=== PATIENT | female | born 1985 | race Caucasian/White ===

== ENCOUNTER 2017-02-21 09:15 | Emergency (ER) | payer SELFPAY ==
[~2017-02-21] VITALS: Ht 170.2 cm; Wt 67.1 kg
[~2017-02-21 09:15] MED LIST: NITR-65 PO; PRM25T PO
--- OUTSIDE RECORDS SUMMARY | 2017-02-21 09:59 | XMS REPORT | Continuity of Care Document ---
Author Author [facility] Address Unknown Phone Unavailable Allergies Medications Problems Date Dx Coded Attending Type Code Diagnosis Diagnosed By 01/25/2011 TYLER HOLLAND MD V72.31 GRAVE DIGGER EXAM, ROUTINE 01/25/2011 TYLER HOLLAND MD V72.31 GRAVE DIGGER EXAM, ROUTINE 01/25/2011 V72.31 GRAVE DIGGER EXAM, ROUTINE 01/25/2011 RAFIQ TELLEZ DO V72.31 GRAVE DIGGER EXAM, ROUTINE 01/25/2011 RAFIQ TELLEZ DO V72.31 GRAVE DIGGER EXAM, ROUTINE 01/25/2011 RAFIQ TELLEZ DO V72.31 GRAVE DIGGER EXAM, ROUTINE 01/25/2011 VIANCA CONKLIN APRN V72.31 GRAVE DIGGER EXAM, ROUTINE 04/27/2011 TYLER HOLLAND MD V25.49 SURVEILLANCE OF OTHER CONTRACEPTIVE METHOD 04/27/2011 TYLER HOLLAND MD V25.49 SURVEILLANCE OF OTHER CONTRACEPTIVE METHOD 04/27/2011 V25.49 SURVEILLANCE OF OTHER CONTRACEPTIVE METHOD 04/27/2011 RAFIQ TELLEZ DO V25.49 SURVEILLANCE OF OTHER CONTRACEPTIVE METHOD 04/27/2011 RAFIQ TELLEZ DO V25.49 SURVEILLANCE OF OTHER CONTRACEPTIVE METHOD 04/27/2011 RAFIQ TELLEZ DO V25.49 SURVEILLANCE OF OTHER CONTRACEPTIVE METHOD 04/27/2011 VIANCA CONKLIN APRN V25.49 SURVEILLANCE OF OTHER CONTRACEPTIVE METHOD 05/23/2011 TYLER HOLLAND MD 511.0 PLEURISY WITHOUT EFFUSION OR CURRENT TUBERCULOSIS 05/23/2011 TYLER HOLLAND MD 786.50 CHEST PAIN 05/23/2011 TYLER HOLLAND MD 511.0 PLEURISY WITHOUT EFFUSION OR CURRENT TUBERCULOSIS 05/23/2011 TYLER HOLLAND MD 786.50 CHEST PAIN 05/23/2011 511.0 PLEURISY WITHOUT EFFUSION OR CURRENT TUBERCULOSIS 05/23/2011 786.50 CHEST PAIN 05/23/2011 RAFIQ TELLEZ DO 511.0 PLEURISY WITHOUT EFFUSION OR CURRENT TUBERCULOSIS 05/23/2011 RAFIQ TELLEZ DO 786.50 CHEST PAIN 05/23/2011 RAFIQ TELLEZ DO K 511.0 PLEURISY WITHOUT EFFUSION OR CURRENT TUBERCULOSIS 05/23/2011 RAFIQ TELLEZ DO K 786.50 CHEST PAIN 05/23/2011 GEOFF HURD, RAFIQ K 511.0 PLEURISY WITHOUT EFFUSION OR CURRENT TUBERCULOSIS 05/23/2011 RAFIQ TELLEZ DO K 786.50 CHEST PAIN 05/23/2011 VIANCA CONKLIN APRN 511.0 PLEURISY WITHOUT EFFUSION OR CURRENT TUBERCULOSIS 05/23/2011 VIANCA CONKLIN APRN 786.50 CHEST PAIN 03/13/2012 TYLER HOLLAND MD 706.1 ACNE 03/13/2012 TYLER HOLLAND MD 706.1 ACNE 03/13/2012 706.1 ACNE 03/13/2012 RAFIQ TELLEZ DO 706.1 ACNE 03/13/2012 RAFIQ TELLEZ DO K 706.1 ACNE 03/13/2012 RAFIQ TELLEZ DO 706.1 ACNE 03/13/2012 VIANCA CONKLIN APRN 706.1 ACNE 04/17/2012 TYLER HOLLAND MD V25.02 Contraceptives 04/17/2012 TYLER HOLLAND MD V76.2 Cervical Pap Smear 04/17/2012 TYLER HOLLAND MD V25.02 Contraceptives 04/17/2012 TYLER HOLLAND MD V76.2 Cervical Pap Smear 04/17/2012 V25.02 Contraceptives 04/17/2012 V76.2 Cervical Pap Smear 04/17/2012 RAFIQ TELLEZ DO V25.02 Contraceptives 04/17/2012 RAFIQ TELLEZ DO K V76.2 Cervical Pap Smear 04/17/2012 RAFIQ TELLEZ DO K V25.02 Contraceptives 04/17/2012 RAFIQ TELLEZ DO K V76.2 Cervical Pap Smear 04/17/2012 RAFIQ TELLEZ DO K V25.02 Contraceptives 04/17/2012 RAFIQ TELLEZ DO K V76.2 Cervical Pap Smear 04/17/2012 VIANCA CONKLIN APRN V25.02 Contraceptives 04/17/2012 VIANCA CONKLIN APRN V76.2 Cervical Pap Smear 12/18/2012 840.8 SPRAIN OF OTHER SPECIFIED SITES OF SHOULDER AND UPPER ARM 12/18/2012 RAFIQ TELLEZ DO 840.8 SPRAIN OF OTHER SPECIFIED SITES OF SHOULDER AND UPPER ARM 12/18/2012 RAFIQ TELLEZ DO 840.8 SPRAIN OF OTHER SPECIFIED SITES OF SHOULDER AND UPPER ARM 12/18/2012 RAFIQ TELLEZ DO 840.8 SPRAIN OF OTHER SPECIFIED SITES OF SHOULDER AND UPPER ARM 12/18/2012 VIANCA CONKLIN APRN 840.8 SPRAIN OF OTHER SPECIFIED SITES OF SHOULDER AND UPPER ARM 03/19/2013 RAFIQ TELLEZ DO V25.9 UNSPECIFIED CONTRACEPTIVE MANAGEMENT 03/19/2013 RAFIQ TELLEZ DO V25.9 UNSPECIFIED CONTRACEPTIVE MANAGEMENT 03/19/2013 RAFIQ TELLEZ DO V25.9 UNSPECIFIED CONTRACEPTIVE MANAGEMENT 03/19/2013 VIANCA CONKLIN APRN V25.9 UNSPECIFIED CONTRACEPTIVE MANAGEMENT 07/15/2013 RAFIQ TELLEZ DO 372.30 CONJUNCTIVITIS UNSPECIFIED 07/15/2013 RAFIQ TELLEZ DO 784.0 HEADACHE 07/15/2013 VIANCA CONKLIN APRN 372.30 CONJUNCTIVITIS UNSPECIFIED 07/15/2013 VIANCA CONKLIN APRN 784.0 HEADACHE Procedures Code [place] [address] PAP SMEAR 2011 Q0091 PAP SMEAR OBTAIN SMEAR 04/17/2012 96914 URINE TEST (IN-HOUSE) 04/17/2012 84847 THERAPUTIC INJ SQ/IM 03/19/2013 J1050 DEPO PROVERA 09/2012 63010 URINE TEST (IN-HOUSE) 03/19/2013 16335 TEST, URINE (IN-HOUSE) 06/18/2013 J1050 DEPO PROVERA 08/2013 70030 THERAPUTIC INJ SQ/IM 06/18/2013 47011 THERAPUTIC INJ SQ/IM 09/06/2013 J1050 DEPO PROVERA 28846 TEST, URINE (IN-HOUSE) 09/06/2013 Results Encounters ACCT No. Visit Date/Time Discharge Status Pt. Type Provider Facility Loc./Unit Complaint [id number] 09/06/2013 16:28:00 09/06/2013 23: 59:59 CLS Outpatient VIANCA CONKLIN APRN [id number] 07/15/2013 17:02:00 07/15/2013 23: 59:59 CLS Outpatient RAFIQ TELLEZ DO [id number] 06/18/2013 08:55:00 06/18/2013 23: 59:59 CLS Outpatient RAFIQ TELLEZ DO [id number] 03/19/2013 08:14:00 03/19/2013 23: 59:59 CLS Outpatient RAFIQ TELLEZ DO [id number] 04/17/2012 13:17:00 04/17/2012 23: 59:59 [place] [id number] 03/13/2012 08:48:00 03/13/2012 23: 59:59 CLS Outpatient TYLER HOLLAND MD [id number] 12/18/2012 14:25:00 Document Registration
[2017-02-21 10:17] LABS: BILIRUBIN,URINE NEGATIVE (NEGATIVE); KETONES,URINE NEGATIVE (NEGATIVE); LEUKOCYTE ESTERASE ,URINE NEGATIVE (NEGATIVE); NITRITE,URINE NEGATIVE (NEGATIVE); PH,URINE 7 (5-9); PROTEIN,URINE NEGATIVE (NEGATIVE); UROBILINOGEN,URINE NORMAL (NORMAL)
[2017-02-21 10:25] LABS: SQUAMOUS EPITHELIAL CELL,UR 0-2 /HPF
[2017-02-21] MEDS ORDERED: LIDOCAINE 2% VISCOUS 15 ML UDC PO ONE (10:45)
[2017-02-21] MEDS ORDERED: ANTACID SUSP 30 ML UDC (MYLANTA) PO ONE (10:45)
[2017-02-21] MEDS ORDERED: ONDANSETRON 4 MG (ZOFRAN) ORAL DISSOLVE TAB SL ONE (10:45)
[2017-02-21 11:53] LABS: BASOPHILS % (AUTO) 0 % (0-10); EOSINOPHILS # (AUTO) 0.1 10^3/uL (0.0-0.3); EOSINOPHILS % (AUTO) 1 % (0-10); LYMPHOCYTES # (AUTO) 1.8 X 10^3 (1.0-4.0); LYMPHOCYTES % (AUTO) 24 % (12-44); MEAN CORPUSCULAR HEMOGLOBIN 32 PG (25-34); MEAN CORPUSCULAR HGB CONC 35 G/DL (32-36); MEAN CORPUSCULAR VOLUME 91 FL (80-99); MEAN PLATELET VOLUME 9.5 FL (7.4-10.4); MONOCYTES # (AUTO) 0.7 X 10^3 (0.0-1.0); MONOCYTES % (AUTO) 10 % (0-12); NEUTROPHILS % (AUTO) 65 % (42-75); PLATELET COUNT 284 10^3/uL (130-400); RED BLOOD COUNT 4.54 10^6/uL (4.35-5.85); RED CELL DISTRIBUTION WIDTH 12.4 % (10.0-14.5); WHITE BLOOD COUNT 7.7 10^3/uL (4.3-11.0)
--- NOTE | 2017-02-21 12:12 | ED Abdominal Pain ---
General Chief Complaint: Abdominal/GI Problems Stated Complaint: VOMINTING ALL NIGHT/ABD PAIN Nursing Triage Note: PT REPORTS N/V SINCE 1999 LAST NOC. SHE IS C/O ABD PAIN NEAR HER UMBILICAL AREA. SHE REPORTS NO FOOD THIS AM, BUT STATES SHE HAS DRANK POP AND COFFEE THIS AM WITHOUT VOMITING. Sepsis Screen: No Definite Risk Source of Information: Patient Exam Limitations: No Limitations History of Present Illness Time Seen By Provider: 09:32 Initial Comments This 31-year-old young lady presents to the emergency room with complaints of central abdominal pain that has lingered for a couple of days and became more intense last night. She began vomiting after eating tacos for supper. The pain is described as posterior to the umbilicus. She rates it as less than 5 out of 10. Vomiting ceased early this morning. She has been able to drink coffee and a diet Coke without problems. However, the pain still lingers on. She is still nauseated. She has chronic diarrhea that is unchanged. Her last bowel movement was this morning. She denies any fever or urinary symptoms. Her primary care provider is Iwona Gomez at the [facility] in [place]. She is status post cholecystectomy. Allergies and Home Medications Allergies Coded Allergies: No Known Drug Allergies (Unverified Allergy, Mild, 07/29/09) Home Medications Nitrofurantoin/Nitrofuran Mac 100 Mg Capsule, 1 EACH PO BID, #20 Ref 0 for infection Prescribed by: EDWIN DAMON on 07/29/09 1828 Ondansetron 4 Mg Tab.rapdis, 4 MG SL Q4H PRN for NAUSEA/VOMITING-1ST LINE, #10 Prescribed by: MICAELA WELSH on 02/21/17 1239 Promethazine Hcl 25 Mg Tablet, 1 TAB PO Q6H, #14 Ref 0 Prescribed by: HEBER WHITTEN MD on 07/29/09 1738 Review of Systems Constitutional: no symptoms reported EENTM: No Symptoms Reported Respiratory: No Symptoms Reported Cardiovascular: No Symptoms Reported Gastrointestinal: See HPI Genitourinary: No Symptoms Reported Musculoskeletal: no symptoms reported Skin: no symptoms reported Psychiatric/Neurological: No Symptoms Reported Endocrine: No Symptoms Reported Hematologic/Lymphatic: No Symptoms Reported Past Grswsyt-Dihdhm-Xzgajr Hx Patient Social History Alcohol Use: Occasionally Uses Recreational Drug Use: No Smoking Status: Never a Smoker 2nd Hand Smoke Exposure: No Recent Foreign Travel: No Contact w/Someone Who Travel: No Recent Infectious Disease Expo: No Recent Hopitalizations: No Physical Abuse: No Sexual Abuse: No Seasonal Allergies Seasonal Allergies: No Surgeries History of Surgeries: Yes Surgeries: Gallbladder Respiratory History of Respiratory Disorde: No Cardiovascular History of Cardiac Disorders: No Neurological History of Neurological Disord: No Reproductive System : No Genitourinary History of Genitourinary Disor: No Gastrointestinal History of Gastrointestinal Di: Yes (chronic diarrhea) Gastrointestinal Disorders: Irritable Bowel Musculoskeletal History of Musculoskeletal Dis: No Endocrine History of Endocrine Disorders: No HEENT History of HEENT Disorders: No Cancer History of Cancer: No Psychosocial History of Psychiatric Problem: No Suicide Risk Score: 0 Integumentary History of Skin or Integumenta: No Physical Exam Vital Signs VS - Last 72 Hours, by Label 02/21/17 09:29 Temp 97.3 Pulse 70 Resp 16 B/P (MAP) 143/97 Pulse Ox 99 O2 Delivery Room Air Capillary Refill : Less Than 3 Seconds General Appearance: WD/WN, no apparent distress HEENT: PERRL/EOMI, normal ENT inspection Respiratory: lungs clear, normal breath sounds, no respiratory distress, no accessory muscle use Cardiovascular: regular rate, rhythm, no edema, no murmur Gastrointestinal: normal bowel sounds, soft, No guarding, No rebound, tenderness (mild tenderness around the umbilicus), No mass Extremities: normal inspection, no pedal edema Neurologic/Psychiatric: sfdc architect II-XII nml as tested, no motor/sensory deficits, alert, normal mood/affect, oriented x 3 Skin: normal color, warm/dry Progress/Results/Core Measures Results/Orders Lab Results Laboratory Tests Test 02/21/17 10:09 02/21/17 11:45 Range/Units Urine Color YELLOW Urine Clarity CLEAR Urine pH 7 5-9 Urine Specific Colome 1.010 L 1.016-1.022 Urine Protein NEGATIVE NEGATIVE Urine Glucose (UA) NEGATIVE NEGATIVE Urine Ketones NEGATIVE NEGATIVE Urine Nitrite NEGATIVE NEGATIVE Urine Bilirubin NEGATIVE NEGATIVE Urine Urobilinogen NORMAL NORMAL MG/DL Urine Leukocyte Esterase NEGATIVE NEGATIVE Urine RBC (Auto) NEGATIVE NEGATIVE Urine RBC NONE /HPF Urine WBC NONE /HPF Urine Squamous Epithelial Cells 0-2 /HPF Urine Crystals NONE /LPF Urine Bacteria NEGATIVE /HPF Urine Casts NONE /LPF Urine Mucus NEGATIVE /LPF Urine Culture Indicated NO White Blood Count 7.7 4.3-11.0 10^3/uL Red Blood Count 4.54 4.35-5.85 10^6/uL Hemoglobin 14.6 11.5-16.0 G/DL Hematocrit 42 35-52 % Mean Corpuscular Volume 91 80-99 FL Mean Corpuscular Hemoglobin 32 25-34 PG Mean Corpuscular Hemoglobin Concent 35 32-36 G/DL Red Cell Distribution Width 12.4 10.0-14.5 % Platelet Count 284 130-400 10^3/uL Mean Platelet Volume 9.5 7.4-10.4 FL Neutrophils (%) (Auto) 65 42-75 % Lymphocytes (%) (Auto) 24 12-44 % Monocytes (%) (Auto) 10 0-12 % Eosinophils (%) (Auto) 1 0-10 % Basophils (%) (Auto) 0 0-10 % Neutrophils # (Auto) 5.0 1.8-7.8 X 10^3 Lymphocytes # (Auto) 1.8 1.0-4.0 X 10^3 Monocytes # (Auto) 0.7 0.0-1.0 X 10^3 Eosinophils # (Auto) 0.1 0.0-0.3 10^3/uL Basophils # (Auto) 0.0 0.0-0.1 10^3/uL Sodium Level 142 135-145 MMOL/L Potassium Level 3.9 3.6-5.0 MMOL/L Chloride Level 103 98-107 MMOL/L Carbon Dioxide Level 28 21-32 MMOL/L Anion Gap 11 5-14 MMOL/L Blood Urea Nitrogen 12 7-18 MG/DL Creatinine 0.88 0.60-1.30 MG/DL Estimat Glomerular Filtration Rate > 60 BUN/Creatinine Ratio 14 Glucose Level 97 70-105 MG/DL Calcium Level 9.9 8.5-10.1 MG/DL Total Bilirubin 0.5 0.1-1.0 MG/DL Aspartate Amino Transf (AST/SGOT) 20 5-34 U/L Alanine Aminotransferase (ALT/SGPT) 23 0-55 U/L Alkaline Phosphatase 81 40-136 U/L Total Protein 7.8 6.4-8.2 GM/DL Albumin 4.5 3.2-4.5 GM/DL Lipase 10 8-78 U/L Serum Test, Qualitative NEGATIVE NEGATIVE My Orders Orders - MICAELA RAMSAY MD Ua Culture If Indicated (02/21/17 09:32) Ondansetron Oral Dissolve Tab (Zofran (02/21/17 10:45) Lidocaine 2% Viscous 15 Ml (Xylocaine Vi (02/21/17 10:45) Antacid Suspension (Mylanta Suspension (02/21/17 10:45) Cbc With Automated Diff (02/21/17 11:40) Comprehensive Metabolic Panel (02/21/17 11:40) Lipase (02/21/17 11:40) Saline Lock/Iv-Start (02/21/17 11:40) Hcg,Qualitative Serum (02/21/17 12:12) Ketorolac Injection (Toradol Injection) (02/21/17 12:30) Medications Given in ED Current Medications Medications Dose Ordered Sig/Kenny Route Start Time Stop Time Status Last Admin Dose Admin Al Hydrox/Mg Hydrox/Simethicone 30 ml ONCE ONCE PO 02/21/17 10:45 02/21/17 10:46 DC 02/21/17 11:10 30 ML Ketorolac Tromethamine 30 mg ONCE ONCE IVP 02/21/17 12:30 02/21/17 12:31 DC 02/21/17 12:40 30 MG Lidocaine HCl 15 ml ONCE ONCE PO 02/21/17 10:45 02/21/17 10:46 DC 02/21/17 11:10 15 ML Ondansetron HCl 8 mg ONCE ONCE SL 02/21/17 10:45 02/21/17 10:46 DC 02/21/17 11:10 8 MG Vital Signs/I&O Vital Sign - Last 12Hours 02/21/17 09:29 Temp 97.3 Pulse 70 Resp 16 B/P (MAP) 143/97 Pulse Ox 99 O2 Delivery Room Air Blood Pressure Mean: 112 Progress Note #1: Time: 11:40 Progress Note Patient was treated with Zofran and a GI cocktail. This resolved her nausea but did not improve her pain. We discussed further workup which might include lab work and imaging. She would like lab work performed at this time and imaging may be performed depending on the lab results. Progress Note #2: Time: 12:34 Progress Note Labs are unremarkable. Patient is agreeable to foregoing imaging at this time. A dose of Toradol will be administered before dismissal. Departure Impression Impression: Primary Impression: Central abdominal pain Additional Impression: Nausea and vomiting Qualified Codes: R11.2 - Nausea with vomiting, unspecified Disposition: 01 HOME, SELF-CARE Condition: Improved Departure-Patient Inst. Decision time for Depature: 12:36 Referrals: NO,LOCAL PHYSICIAN (PCP) Primary Care Physician VALERIA GOMEZ APRN (Family) Primary Care Physician Patient Instructions: Acute Abdomen (Belly Pain), Adult (DC), Nausea and Vomiting, Adult Add. Discharge Instructions: Drink plenty of clear liquids. Gradually advance your diet with small quantities of bland food as tolerated. Use of an dkza-xqq-bbanqcb antacid medication such as Pepcid (famotidine) may be helpful in reducing abdominal pain. You may also take Tylenol (acetaminophen) but avoid use of NSAID medications such as ibuprofen or naproxen. Use Zofran (ondansetron) as prescribed for nausea and vomiting. Avoid consumption of alcohol or irritating foods such as spicy foods for at least several days after your pain resolves. Then drink alcohol only in moderation. Follow-up with your primary care provider if not better in a couple of days. Return to the ER if symptoms worsen. All discharge instructions reviewed with patient and/or family. Voiced understanding. Scripts Ondansetron (Zofran Odt) 4 Mg Tab.rapdis 4 MG SL Q4H Y for NAUSEA/VOMITING-1ST LINE, #10 TAB Prov: MICAELA RAMSAY MD 02/21/17 MIACELA RAMSAY MD Feb 21, 2017 12:12
[2017-02-21 12:15] LABS: ALANINE AMINOTRANSFERASE 23 U/L (0-55); ALBUMIN 4.5 GM/DL (3.2-4.5); ANION GAP 11 MMOL/L (5-14); ASPARTATE AMINO TRANSFERASE 20 U/L (5-34); BILIRUBIN,TOTAL 0.5 MG/DL (0.1-1.0); BLOOD UREA NITROGEN 12 MG/DL (7-18); BUN/CREATININE RATIO 14; CALCIUM 9.9 MG/DL (8.5-10.1); CARBON DIOXIDE 28 MMOL/L (21-32); CHLORIDE 103 MMOL/L (98-107); CREATININE SERUM 0.88 MG/DL (0.60-1.30); GFR ESTIMATED > 60; GLUCOSE 97 MG/DL (70-105); LIPASE 10 U/L (8-78); POTASSIUM 3.9 MMOL/L (3.6-5.0); SODIUM 142 MMOL/L (135-145); TOTAL PROTEIN 7.8 GM/DL (6.4-8.2)
[2017-02-21] MEDS ORDERED: KETOROLAC 30 MG/ML VIAL IVP ONE (12:30)
[2017-02-21] MEDS ORDERED: ONDA4TAB8 SL (12:39)
[2017-02-21 12:49] VITALS: BP 123/95
== END 2017-02-21 12:49 | disposition home or self-care (01) ==
LOC: EDUNIT# 09:15 → ER 09:20
DX: R10.33 Periumbilical pain (principal); R11.2 Nausea with vomiting, unspecified; Z90.49 Acquired absence of other specified parts of digestive tract; Z87.19 Personal history of other diseases of the digestive system
CPT/HCPCS: 36415; 80053; 81000; 83690; 84703; 85025

== ENCOUNTER → 2017-06-16 | Outpatient (CLI) | payer SELFPAY ==
[~2017-06-16] MED LIST changes: +ONDA4TAB8 SL
--- NOTE | 2017-06-16 15:51 | Diagnostic Imaging Report ---
PROCEDURE: US OB SINGLE FETUS <14 WKS. TECHNIQUE: Multiple real-time grayscale images were obtained over the gravid uterus in various projections. INDICATION: with unknown dates. COMPARISON: None available. FINDINGS: There is a gestational sac appropriately positioned within the uterus at the level of the fundus, and the gestational sac has a normal morphology. An embryo is identified with a crown-rump length of 0.85 cm which gives an estimated gestational age of 6 weeks and 6 days. heart tones are identified at a rate of 125 beats per minute. No appreciable subchorionic hemorrhage. Both ovaries are identified and physiologic in appearance. Blood flow is seen in both ovaries by color Doppler imaging. No suspicious adnexal mass or free pelvic fluid. IMPRESSION: 1. Early single live intrauterine with an estimated gestational age of 6 weeks and 6 days. This gives an estimated due date of 02/03/2018. Dictated by: Dictated on workstation # [id number]
== END ==
LOC: RAD 13:24
PROVIDERS: ATTEND Family Medicine
DX: Z34.81 Encounter for supervision of other normal pregnancy, first trimester (principal); Z3A.01 Less than 8 weeks gestation of pregnancy
CPT/HCPCS: 76801

== ENCOUNTER → 2017-09-20 | Outpatient (CLI) | payer MEDICAID ==
--- NOTE | 2017-09-20 13:31 | Diagnostic Imaging Report ---
INDICATION: , second trimester. TECHNIQUE: Multiple real-time grayscale images were obtained over the gravid uterus. COMPARISON: 06/16/2017. FINDINGS: The prior OB ultrasound exam of 06/16/2017 noted a single live fetus of approximately 6 weeks 6 days gestation +/-1/2 week. On this study, the fetus is again identified. The fetus is cephalic in presentation. heart motion was noted with a rate of 161 BPM recorded. There were no abnormalities identified. However, the four-chamber heart view, the intracranial contents, and the spine were not optimally visualized due to lie. I would recommend that a short-term (4-6 week) followup exam be performed for further evaluation. The placenta is anterior and there is no previa. The amniotic fluid volume is within normal limits. The growth parameters have progressed as expected since the prior exam, although the abdominal circumference measures slightly less than the other growth parameters. The cervix was identified and measures 4.4 cm in length. IMPRESSION: 1. There is a single live fetus of approximately 20 weeks 4 days gestation +/-1 week. The EDC remains 02/03/2018. 2. There were no abnormalities identified but the spine, intracranial contents, and four-chamber heart view were not optimally visualized. Recommendations, as above. 3. The growth parameters have progressed as expected since the prior exam. The growth parameters could also be further evaluated on the followup exam. Biometrical measurements are as follows: Biparietal 4.85 cm, age 20 weeks 5 days. Head circumference 18.13 cm, age 20 weeks 4 days. Abdominal circumference 14.48 cm, age 19 weeks 6 days. Femur length 3.78 cm, age 22 weeks 1 days. Sonographic estimate age: 20 weeks 6 days. Sonographic estimated date of delivery: 02/01/18. Estimated Weight: 379 gm (+/- 55 gm). LMP percentile: 59%. heart rate: 161 beats per minute. number: 1 of 1. Dictated by: Dictated on workstation # [id number]
== END ==
LOC: RAD 10:51
PROVIDERS: ATTEND Family Medicine
DX: Z34.82 Encounter for supervision of other normal pregnancy, second trimester (principal); Z3A.20 20 weeks gestation of pregnancy
CPT/HCPCS: 76805

== ENCOUNTER → 2017-11-20 | Outpatient (CLI) | payer MEDICAID ==
--- NOTE | 2017-11-20 10:37 | Diagnostic Imaging Report ---
INDICATION: Followup heart, brain and spine as well as and amniotic fluid index. TECHNIQUE: Multiple real-time grayscale images were obtained over the gravid uterus. COMPARISON: 09/20/2017. FINDINGS: There is a single live fetus in a cephalic presentation. Placenta is anterior. heart rate was recorded at 165 beats per minute. Amniotic fluid index is 12.1 cm. survey does show the brain to be unremarkable. There is a four-chamber heart. The spine is unremarkable. Biometrical measurements are as follows: Biparietal 7.38 cm, age 29 weeks 5 days. Head circumference 27.44 cm, age 30 weeks 0 days. Abdominal circumference 26.24 cm, age 30 weeks 3 days. Femur length 5.49 cm, age 30 weeks 3 days. Sonographic estimate age: 29 weeks 6 days. Sonographic estimated date of delivery: 01/30/2018. Estimated Weight: 1463 gm (+/- 214 gm). LMP percentile: 57%. heart rate: 165 beats per minute. number: 1 of 1. IMPRESSION: Single live IUP approximately 30 weeks gestational age demonstrating normal interval growth when compared with prior ultrasound from 09/20/2017. Dictated by: Dictated on workstation # [id number]
== END ==
LOC: RAD 09:28
PROVIDERS: ATTEND Family Medicine
DX: Z34.83 Encounter for supervision of other normal pregnancy, third trimester (principal); Z3A.30 30 weeks gestation of pregnancy
CPT/HCPCS: 76816

== ENCOUNTER 2018-02-01 20:00 | Inpatient (IN) | payer MEDICAID ==
[~2018-02-01] VITALS: Ht 170.2 cm; Wt 77.6 kg
--- OUTSIDE RECORDS SUMMARY | 2018-02-01 20:09 | XMS REPORT ---
Author Author RAVIN WELDON Organization [facility] Address [address] [place] [address] Care Team Providers Care Director Biomedical Engineering Name Role Phone SHIRAZ RAVIN Unavailable PROBLEMS Type Condition ICD9-CM Code DHH27-BD Code Onset Dates Condition Status SNOMED Code Problem Bilateral carpal tunnel syndrome G56.03 Active 74872032957042939 Problem Uterine size-date discrepancy in third trimester O26.843 Active 141421715 Problem Heartburn R12 Active 99745868 Problem Encounter for supervision of other normal , third trimester Z34.83 Active 77258254 Problem Anemia affecting , antepartum O99.019 Active 287153263 Problem Other specified related conditions, third trimester O26.893 Active 57384352 ALLERGIES No Known Allergies ENCOUNTERS Encounter Location Date Diagnosis [id number] [id number] Jan, [address] [place] [id number] Jan, [facility] [address] [id number][place] [id number] Jan, Encounter for supervision of other normal , third trimester Z34.83 [facility] [address] [facility] [id number][place] [id number] Dec, [facility] [address] [id number], [place] [id number] Dec, Encounter for supervision of other normal , third trimester Z34.[address] [facility] [address] [id number], [place] [id number] Dec, Encounter for supervision of other normal , third trimester Z34.83 ; Other specified related conditions, third trimester O26.893 ; Heartburn R12 ; Encounter for screening for Streptococcus B Z36.85 and Bilateral carpal tunnel syndrome G56.03 [facility] 120 [address] [id number] Dec, Heartburn R12 ; Encounter for supervision of other normal , third trimester Z34.83 ; Other specified related conditions, third trimester O26.893 ; Uterine size-date discrepancy in third trimester O26.843 ; Anemia affecting , antepartum O99.019 and Bilateral carpal tunnel syndrome G56.03 [address] [place] [address] [id number] Nov, Encounter for supervision of other normal , third trimester Z34.83 ; Other specified related conditions, third trimester O26.893 ; Heartburn R12 ; Anemia affecting , antepartum O99.019 and Uterine size-date discrepancy in third trimester O26.[address] [place] [address] [id number] Nov, [place] [id number] [place] [address] [id number] Nov, Encounter for supervision of other normal , third trimester Z34.83 ; Anemia affecting , antepartum O99.019 ; Heartburn R12 ; Other specified related conditions, third trimester O26.893 and Encounter for immunization Z23 [facility] [address] [id number], [place] [id number] Oct, Encounter for supervision of other normal , second trimester Z34.82 [facility] [id number] [id number] Oct, Anemia affecting , antepartum O99.019 [facility] [id number] [place] [address] [id number] Oct, Encounter for supervision of other normal , second trimester Z34.82 [facility] [address] [id number], [place] [id number] September, Encounter for supervision of other normal , second trimester Z34.82 [facility] [address] [id number], [place] [id number] September, [facility] [address] [id number], [place] [id number] September, Encounter for supervision of other normal , second trimester Z34.82 ; Other specified bacterial agents as the cause of diseases classified elsewhere B96.89 and Acute vaginitis N76.0 [facility] [address] [id number], [place] [id number] Aug, [facility] [address] [id number], [place] [id number] Jul, Encounter for supervision of other normal , second trimester Z34.82 [facility] [address] [facility] [id number], [place] [id number] Jul, Encounter for supervision of other normal , first trimester Z34.81 [facility] [address] [facility] [id number], [place] [id number] Jun, [facility] [id number], [place] [id number] Jun, [facility] [id number], [place] [id number] May, Encounter for supervision of other normal , first trimester Z34.81 [facility] [id number], [place] [id number] May, test-positive Z32.01 [facility] [address]005[address], [place] [address] Aug, [facility] [address]00565100[place], [place] [address]46 Aug, [facility] [address] [facility] [id number], [place] [phone] Aug, [facility] [address] [place] [address] 2546 Aug, [facility] [address] [facility] [id number], [place] [phone] Jul, [facility] [address]00565100[place], [place] [address] Jul, [facility] [address] [id number], [place] [address]- [address] Jun, [facility] [address] [id number] [place] [id number] Jun, [facility] [address] [id number] [place] [id number] Mar, [facility] [address] [facility] [id number] [place] [address]- [address] Mar, [facility] [address] [id number] [place] [id number] Dec, [facility] [address] [id number] [place] [id number] Apr, [facility] [address] [id number] [place] [id number] Apr, [facility] [address] [place] [address] Apr, [facility] [place] [facility] [address]00565100[place], [place] [address] Apr, [facility] [place] [facility] [address] [id number], [place] [address] Apr, [facility] [address] [facility] [id number] [place] [id number] Apr, [facility] [place] [facility] [address] [id number], [place] [address] Apr, [facility] [place] [facility] [address]00565100[place], [place] [address] Mar, [facility] [place] [facility] [address] [facility] [id number] [address] Mar, [facility] [place] [facility] [address] [facility] [id number], [place] [address] Mar, [facility] [place] [facility] [address] [id number], [place] [address] Mar, [facility] [place] [facility] [address] [id number], [place] [address] Mar, [facility] [id number], [place] [id number] Mar, [facility] [id number] [place] [address]- [address] Mar, [facility] [id number] [place] [address] [id number] Feb, [facility] [id number] [place] [address]- 2546 Feb, [facility] [id number] [place] [address]- 2546 Feb, [facility] [id number] [place] [address] [phone] Feb, [facility] [id number] [place] [address] [id number] Jan, [facility] [id number] [place] [address] [phone] Oct, [facility] [id number] [place] [address] [id number] Jul, [facility] [id number] [place] [address] [phone] May, [facility] [id number] [place] [address] 2546 Apr, [facility] [address]00565100[place], [place] [address] 2546 Jan, IMMUNIZATIONS No Known Immunizations SOCIAL HISTORY Never Assessed [facility] Activity Details Follow Up 2-3 weeks Reason: Pending Test UA OB DIP (IN HOUSE) VITAL SIGNS Height 67 in 2017-12-05 Weight 166.2 lbs 2017-12-05 Temperature 97.6 degrees Fahrenheit 2017-12-05 Heart Rate 88 bpm 2017-12-05 Respiratory Rate 16 2017-12-05 BMI 26.031 kg/m2 2017-12-05 Blood pressure systolic 122 mmHg 2017-12-05 Blood pressure diastolic 68 mmHg 2017-12-05 MEDICATIONS Medication Instructions Dosage Frequency Start Date End Date Duration Status Ranitidine HCl 150 MG Orally Once a day 1 tablet at bedtime 24h Nov, 30 day(s) Active Ferrous Sulfate 325 (65 Fe) MG Orally Once a day 1 tablet 24h Oct, 30 day(s) Active Multivitamin Plus DHA 27-0.8-250 MG Orally no more than twice a day as directed May, Active RESULTS Name Result Date Reference Range Ultrasound : OB, Limited 2017-12-26 PROCEDURES Procedure Date Ordered Result Body Site URINE-NO MICRO December 05, 2017 INSTRUCTIONS MEDICATIONS ADMINISTERED No Known Medications MEDICAL (GENERAL) HISTORY Type Description Date Surgical History tonsillectomy and adenoidectomy Surgical History cholecystectomy Hospitalization History ER for vaginal discharge 08/2017
--- OUTSIDE RECORDS SUMMARY | 2018-02-01 20:10 | XMS REPORT ---
Author Author RAVIN WELDON Organization [facility] Address [address] [place] [address] Care Team Providers Care Bsa/Aml Compliance Officer Name Role Phone SHIRAZ RAVIN Unavailable PROBLEMS Type Condition ICD9-CM Code YRX92-EY Code Onset Dates Condition Status SNOMED Code Problem Bilateral carpal tunnel syndrome G56.03 Active 37577490544268263 Problem Uterine size-date discrepancy in third trimester O26.843 Active 671912303 Problem Heartburn R12 Active 77187895 Problem Encounter for supervision of other normal , third trimester Z34.83 Active 68554294 Problem Anemia affecting , antepartum O99.019 Active 997489474 Problem Other specified related conditions, third trimester O26.893 Active 44386663 ALLERGIES No Known Allergies ENCOUNTERS Encounter Location Date Diagnosis [address]005[address] [id number] Jan, [facility] [address] [place] [address] [id number] Jan, [facility] [address] [id number] [place] [id number] Jan, [facility] [place] [id number] [id number] Dec, [facility] [address] [id number] [place] [phone] Dec, Encounter for supervision of other normal , third trimester Z34.83 [facility] All MediaTER [address] [id number] [place] [id number] Dec, Encounter for supervision of other normal , third trimester Z34.83 ; Other specified related conditions, third trimester O26.893 ; Heartburn R12 ; Encounter for screening for Streptococcus B Z36.85 and Bilateral carpal tunnel syndrome G56.03 [facility] [id number], [place] [id number] Dec, Heartburn R12 ; Encounter for supervision of other normal , third trimester Z34.83 ; Other specified related conditions, third trimester O26.893 ; Uterine size-date discrepancy in third trimester O26.843 ; Anemia affecting , antepartum O99.019 and Bilateral carpal tunnel syndrome G56.03 [facility] [id number] [place] [address] [id number] Nov, Encounter for supervision of other normal , third trimester Z34.83 ; Other specified related conditions, third trimester O26.893 ; Heartburn R12 ; Anemia affecting , antepartum O99.019 and Uterine size-date discrepancy in third trimester O26.843 [facility] [id number] [place] [address] [id number] Nov, [facility] [address] [place] [address] [phone] Nov, Encounter for supervision of other normal , third trimester Z34.83 ; Anemia affecting , antepartum O99.019 ; Heartburn R12 ; Other specified related conditions, third trimester O26.893 and Encounter for immunization Z23 [facility]ITALScheduling Employee Sched[employer] Software[address] [id number] [place] [id number] Oct, Encounter for supervision of other normal , second trimester Z34.82 [facility] [address]005[address]100[place] [id number] Oct, Anemia affecting , antepartum O99.019 [facility] [address] [place] [address] [id number] Oct, Encounter for supervision of other normal , second trimester Z34.82 [facility] [address] [id number] [place] [id number] September, Encounter for supervision of other normal , second trimester Z34.82 [facility] [place] [id number] [id number] September, [facility] [address] [id number] [place] [id number] September, Encounter for supervision of other normal , second trimester Z34.82 ; Other specified bacterial agents as the cause of diseases classified elsewhere B96.89 and Acute vaginitis N76.0 [facility] [id number], [place] [id number] Aug, [facility] [id number], [place] [id number] Jul, Encounter for supervision of other normal , second trimester Z34.82 [facility] [id number], [place] [id number] Jul, Encounter for supervision of other normal , first trimester Z34.81 [facility] [id number], [place] [id number] Jun, [facility] [id number], [place] [id number] Jun, [facility] [id number] [place] [address] [id number] May, Encounter for supervision of other normal , first trimester Z34.81 [facility] [id number], [place] [id number] May, test-positive Z32.01 [facility] [id number] [place] [address] 2546 Aug, [facility] [id number] [place] [address] 53439 2546 Aug, [facility] [id number], [place] [id number] Aug, [facility] [id number] [place] [address]- [address]16 Aug, [facility] [id number] [place] [address] [id number] Jul, [facility] [id number] [place] [address]- [address]876 Jul, [facility] [id number] [place] [address]90- 6046 Jun, [facility] [address] [id number] [place] [id number] Jun, [facility] [address] [id number] [place] [id number] Mar, [facility] [place] [facility] [address] [id number] [place] [address]- 2546 Mar, [facility] [address] [id number] [place] [id number] Dec, [facility] [address] [id number] [place] [phone] Apr, [facility] [address] [id number] [place] [id number] Apr, [facility] [place] [facility] [address] [facility] [id number] [place] [address]- [address] Apr, [facility] [place] [facility] [address]00565100[place] [address]- [address] Apr, [facility] [place] [facility] [address] [facility] [id number] [place] [address]- 8347 Apr, [facility] [address] [id number] [place] [id number] Apr, [facility] [place] [facility] [address]00565100[place] [address]- 7[address] Apr, [facility] [place] [facility] [address]00565100[place] [address]- [address]23 Mar, [facility] [place] [facility] [address] [id number] [address]- 2659 Mar, [facility] [place] [facility] [address] [facility] [id number] [place] [address]- 2676 Mar, [facility] [place] [facility] [address] [facility] [id number] [place] [address]- 2597 Mar, [facility] [place] [facility] [address] [facility] [id number] [place] [address]- 0823 Mar, [facility] [id number], [place] [id number] Mar, [facility] [id number] [place] [address] 27323 2546 Mar, [facility] [id number] [place] [address] [id number] Feb, [facility] [id number] [place] [address] 26916 2546 Feb, [facility] [id number] [place] [address] 93600- 2546 Feb, [facility] [id number] [place] [address] [id number] Feb, [facility] [id number] [place] [address] [id number] Jan, [facility] [id number] [place] [address] [phone] Oct, [facility] [id number] [place] [address] [id number] Jul, [facility] [id number] [place] [address] [phone] May, [facility] [id number] [place] [address] 06643 2546 Apr, [facility] [address]00565100[place] [address] 2546 Jan, IMMUNIZATIONS No Known Immunizations SOCIAL HISTORY Never Assessed REASON FOR VISIT OB [facility] PLAN OF CARE Activity Details Follow Up 2 -3 Weeks Reason: VITAL SIGNS Height 67 in 2017-11-02 Weight 167 lbs 2017-11-02 Temperature 97.6 degrees Fahrenheit 2017-11-02 Heart Rate 82 bpm 2017-11-02 Respiratory Rate 16 2017-11-02 BMI 26.156 kg/m2 2017-11-02 Blood pressure systolic 118 mmHg 2017-11-02 Blood pressure diastolic 68 mmHg 2017-11-02 MEDICATIONS Medication Instructions Dosage Frequency Start Date End Date Duration Status Multivitamin Plus DHA 27-0.8-250 MG Orally no more than twice a day as directed May, Active RESULTS No Results PROCEDURES Procedure Date Ordered Result Body Site LAB NOT BILLED BY [facility] November 02, 2017 URINE-NO MICRO November 02, 2017 VENIPUNCT, ROUTINE* November 02, 2017 INSTRUCTIONS MEDICATIONS ADMINISTERED No Known Medications MEDICAL (GENERAL) HISTORY Type Description Date Surgical History tonsillectomy and adenoidectomy Surgical History cholecystectomy Hospitalization History ER for vaginal discharge 08/2017
--- OUTSIDE RECORDS SUMMARY | 2018-02-01 20:10 | XMS REPORT ---
Author Author RAVIN WELDON Organization [facility] Address [address] [place] [address] Care Team Providers Care Budget Specialist Name Role Phone RAVIN WELDON Unavailable PROBLEMS Type Condition ICD9-CM Code HIE36-IO Code Onset Dates Condition Status SNOMED Code Problem Encounter for supervision of other normal , second trimester Z34.82 Active 37694699 Problem Encounter for supervision of other normal , first trimester Z34.81 Active 90675856 Problem Bilateral carpal tunnel syndrome G56.03 Active 08044256575399622 Problem Uterine size-date discrepancy in third trimester O26.843 Active 102533302 Problem Heartburn R12 Active 07432826 Problem Encounter for supervision of other normal , third trimester Z34.83 Active 11302925 Problem Anemia affecting , antepartum O99.019 Active 155630617 Problem Other specified related conditions, third trimester O26.893 Active 84308781 ALLERGIES No Known Allergies ENCOUNTERS Encounter Location Date Diagnosis [place] [address] [facility] [id number] [place] [id number] Dec, [facility] [address] [facility] [id number][place] [id number] Dec, Heartburn R12 ; Encounter for supervision of other normal , third trimester Z34.83 ; Other specified related conditions, third trimester O26.893 ; Uterine size-date discrepancy in third trimester O26.843 ; Anemia affecting , antepartum O99.019 and Bilateral carpal tunnel syndrome G56.03 [facility] [address] [facility] [id number], [place] [id number] Nov, Encounter for supervision of other normal , third trimester Z34.83 ; Other specified related conditions, third trimester O26.893 ; Heartburn R12 ; Anemia affecting , antepartum O99.019 and Uterine size-date discrepancy in third trimester O26.843 [facility] [address] [id number], [place] [address] Nov, [facility] [id number] [place] [id number] Nov, Encounter for supervision of other normal , third trimester Z34.83 ; Anemia affecting , antepartum O99.019 ; Heartburn R12 ; Other specified related conditions, third trimester O26.893 and Encounter for immunization Z23 [facility] [address] [id number] [id number] Oct, Encounter for supervision of other normal , second trimester Z34.82 [facility] [id number] [place] [id number] Oct, Anemia affecting , antepartum O99.019 [facility] [id number] [place] [id number] Oct, Encounter for supervision of other normal , second trimester Z34.82 [facility] [address] [id number][place] [id number] September, Encounter for supervision of other normal , second trimester Z34.82 [facility] [id number], [place] [id number] September, [facility] [address] [id number], [place] [id number] September, Encounter for supervision of other normal , second trimester Z34.82 ; Other specified bacterial agents as the cause of diseases classified elsewhere B96.89 and Acute vaginitis N76.0 [facility] [address] [facility] [id number], [place] [phone] Aug, [facility] [address] [id number], [place] [phone] Jul, Encounter for supervision of other normal , second trimester Z34.82 [facility] [address] [id number], [place] [phone] Jul, Encounter for supervision of other normal , first trimester Z34.81 [facility] [address] [id number], [place] [phone] Jun, [facility] [address] [id number], [place] [address] Jun, [facility] [id number], [place] [id number] May, Encounter for supervision of other normal , first trimester Z34.81 [facility] [id number], [place] [id number] May, test-positive Z32.01 [facility] [id number] [place] [address] Aug, [facility] [id number] [place] [address]- [address] Aug, [facility] [id number] [place] [address] [id number] Aug, [facility] [id number] [place] [address] Aug, [facility] [id number], [place] [id number] Jul, [facility] [id number] [place] [address]- 4[address] Jul, [facility] [id number] [place] [address]- 8746 Jun, [facility] [id number], [place] [phone] Jun, [facility] [id number], [place] [id number] Mar, [facility] [address]00565100[place], [place] [address] Mar, [facility] [id number], [place] [id number] Dec, [facility] [id number], [place] [address] Apr, [facility] [id number], [place] [address] Apr, [facility] [address] [id number], [place] [address] Apr, [facility] [place] [facility] [address] [id number], [place] [address] Apr, [facility] [address] [id number] [place] [address] Apr, [facility] [address] [id number], [place] [id number] Apr, [facility] [address] [id number] [place] [address] Apr, [facility] [place] [facility] [address] [id number] [place] [address] Mar, [facility] [place] [facility] [address] [facility] [id number] [place] [address]- [address] Mar, [facility] [place] [facility] [address] [facility] [id number], [place] [address]- [address] Mar, [facility] [address] [facility] [id number] [place] [address]- [address] Mar, [facility] [place] [facility] [address] [facility] [id number], [place] [address] Mar, [facility] [address] [facility] [id number], [place] [id number] Mar, [facility] [place] [facility] [address] [id number], [place] [address] Mar, [facility] [address] [id number], [place] [id number] Feb, [facility] [place] [facility] [address] [id number], [place] [address] Feb, [facility] [place] [facility] [address] [facility] [id number], [place] [address] Feb, [facility] [address] [id number], [place] [id number] Feb, [facility] [address] [facility] [id number] [place] [phone] Jan, [facility] [address] [facility] [id number], [place] [phone] Oct, [facility] [address] [facility] [id number], [place] [id number] Jul, [facility] [address] [facility] [id number], [place] [phone] May, [facility] [id number], [place] [address] Apr, [facility] [id number], [place] [address] Jan, IMMUNIZATIONS No Known Immunizations SOCIAL HISTORY Never Assessed REASON FOR VISIT Followup [facility] PLAN OF CARE Activity Details Follow Up 4 Weeks Reason: Pending Test UA OB DIP (IN HOUSE) VITAL SIGNS Height 67 in 2017-10-02 Weight 162.9 lbs 2017-10-02 Temperature 97.2 degrees Fahrenheit 2017-10-02 Heart Rate 85 bpm 2017-10-02 Respiratory Rate 16 2017-10-02 Oximetry 99 % 2017-10-02 BMI 25.514 kg/m2 2017-10-02 Blood pressure systolic 128 mmHg 2017-10-02 Blood pressure diastolic 73 mmHg 2017-10-02 MEDICATIONS Medication Instructions Dosage Frequency Start Date End Date Duration Status Multivitamin Plus DHA 27-0.8-250 MG Orally no more than twice a day as directed May, Active RESULTS No Results PROCEDURES Procedure Date Ordered Result Body Site URINE-NO MICRO October 02, 2017 INSTRUCTIONS MEDICATIONS ADMINISTERED No Known Medications MEDICAL (GENERAL) HISTORY Type Description Date Surgical History tonsillectomy and adenoidectomy Surgical History cholecystectomy Hospitalization History ER for vaginal discharge 08/2017
--- OUTSIDE RECORDS SUMMARY | 2018-02-01 20:10 | XMS REPORT ---
Author Author RAVIN WELDON Organization [facility] Address [address] [place] [address] Care Team Providers Care Business Process Associate Name Role Phone SHIRAZ RAVIN Unavailable PROBLEMS Type Condition ICD9-CM Code QCM40-CH Code Onset Dates Condition Status SNOMED Code Problem Bilateral carpal tunnel syndrome G56.03 Active 29846252074815748 Problem Uterine size-date discrepancy in third trimester O26.843 Active 958714288 Problem Heartburn R12 Active 26748288 Problem Encounter for supervision of other normal , third trimester Z34.83 Active 55300562 Problem Anemia affecting , antepartum O99.019 Active 698808842 Problem Other specified related conditions, third trimester O26.893 Active 36458502 ALLERGIES No Information ENCOUNTERS Encounter Location Date Diagnosis [place] [id number] [id number] Jan, [address] [place] [address] [id number] Jan, [facility] [address] [facility] [address] [address] [id number], [place] [phone] Jan, Encounter for supervision of other normal , third trimester Z34.[address] [id number], [place] [id number] Dec, [facility] [address] [facility] [id number], [place] [address] Dec, Encounter for supervision of other normal , third trimester Z34.83 [facility] [address] [id number], [place] [id number] Dec, Encounter for supervision of other normal , third trimester Z34.83 ; Other specified related conditions, third trimester O26.893 ; Heartburn R12 ; Encounter for screening for Streptococcus B Z36.85 and Bilateral carpal tunnel syndrome G56.03 [facility] [address]00565100[place], [place] [address] Dec, Heartburn R12 ; Encounter for supervision of other normal , third trimester Z34.83 ; Other specified related conditions, third trimester O26.893 ; Uterine size-date discrepancy in third trimester O26.843 ; Anemia affecting , antepartum O99.019 and Bilateral carpal tunnel syndrome G56.[address] [place] [id number] Nov, Encounter for supervision of other normal , third trimester Z34.83 ; Other specified related conditions, third trimester O26.893 ; Heartburn R12 ; Anemia affecting , antepartum O99.019 and Uterine size-date discrepancy in third trimester O26.[address] [place] [address] [id number] Nov, [place] [id number] [place] [id number] Nov, Encounter for supervision of other normal , third trimester Z34.83 ; Anemia affecting , antepartum O99.019 ; Heartburn R12 ; Other specified related conditions, third trimester O26.893 and Encounter for immunization Z23 [facility] [address] [id number], [place] [id number] Oct, Encounter for supervision of other normal , second trimester Z34.82 [facility] [place] [id number] [phone] Oct, Anemia affecting , antepartum O99.019 [facility] [id number] [place] [address] [id number] Oct, Encounter for supervision of other normal , second trimester Z34.82 [facility] [address] [id number], [place] [address] September, Encounter for supervision of other normal , second trimester Z34.82 [facility] [address] [id number], [place] [id number] September, [facility] [place] [address] [id number], [place] [id number] September, Encounter for supervision of other normal , second trimester Z34.82 ; Other specified bacterial agents as the cause of diseases classified elsewhere B96.89 and Acute vaginitis N76.0 [facility] [address] [id number], [place] [id number] Aug, [facility] [id number], [place] [id number] Jul, Encounter for supervision of other normal , second trimester Z34.82 [facility] [place] [address] [facility] [id number], [place] [phone] Jul, Encounter for supervision of other normal , first trimester Z34.81 [facility] [place] [address] [facility] [id number], [place] [phone] Jun, [facility] [place] [id number], [place] [id number] Jun, [facility] [place] [id number], [place] [phone] May, Encounter for supervision of other normal , first trimester Z34.81 [facility] [place] [id number], [place] [id number] May, test-positive Z32.01 [facility] [address]00565100[place], [place] [address] Aug, [facility] [address]00565100[place], [place] [address] 2546 Aug, [facility] [address] [facility] [id number], [place] [id number] Aug, [facility] [id number] [place] [address]- [address]56 Aug, [facility] [address] [facility] [id number], [place] [id number] Jul, [facility] [address]00565100[place], [place] [address]- [address] Jul, [facility] [address] [id number], [place] [address]- 2546 Jun, [facility] [address] [id number] [place] [id number] Jun, [facility] [address] [id number] [place] [id number] Mar, [facility] [address] [facility] [id number] [place] [address]- [address]46 Mar, [facility] [address] [id number] [place] [id number] Dec, [facility] [address] [id number] [place] [id number] Apr, [facility] [address] [id number] [place] [id number] Apr, [facility] [address] [address]- [address] Apr, [facility] [place] [facility] [address]00565100[place], [place] [address]- [address] Apr, [facility] [place] [facility] [address] [id number], [place] [address]- [address] Apr, [facility] [address] [facility] [id number] [place] [id number] Apr, [facility] [place] [facility] [address]00565100[place], [place] [address]- [address] Apr, [facility] [place] [facility] [address]00565100[place], [place] [address]- [address] Mar, [facility] [place] [facility] [address] [facility] [id number], [place] [address]- 9487 Mar, [facility] [place] [facility] [address]00565100[place], [place] [address]- 9[address] Mar, [facility] [place] [facility] [address] [id number], [place] [address]- [address] Mar, [facility] [place] [facility] [address]00565100[place], [place] [address]- [address] Mar, [facility] [id number], [place] [address] Mar, [facility] [address]00565100[place], [place] [address]- [address]46 Mar, [facility] [id number], [place] [id number] Feb, [facility] [address]00565100[place], [place] [address]- [address]46 Feb, [facility] [address]00565100[place], [place] [address]- 2546 Feb, [facility] [id number] [place] [address] [id number] Feb, [facility] [id number] [place] [address] [id number] Jan, [facility] [id number] [place] [address] [id number] Oct, [facility] [id number], [place] [id number] Jul, [facility] [id number], [place] [address]50034396 May, [facility] [address]00565100[place], [place] [address]- [address] Apr, [facility] [address]00565100[place], [place] [address]- [address] Jan, IMMUNIZATIONS No Known Immunizations SOCIAL HISTORY Never Assessed REASON FOR VISIT Requests return call PLAN OF CARE VITAL SIGNS MEDICATIONS Unknown Medications RESULTS No Results PROCEDURES No Known procedures INSTRUCTIONS MEDICATIONS ADMINISTERED No Known Medications MEDICAL (GENERAL) HISTORY Type Description Date Surgical History tonsillectomy and adenoidectomy Surgical History cholecystectomy Hospitalization History ER for vaginal discharge 08/2017
--- OUTSIDE RECORDS SUMMARY | 2018-02-01 20:10 | XMS REPORT ---
Author Author RAVIN WELDON Organization [facility], [place] Address [address] [place] [address] Care Team Providers Care Supervisor Data Processing Name Role Phone BUZZMICHELLESOO RAVIN Unavailable PROBLEMS Type Condition ICD9-CM Code TGT36-DP Code Onset Dates Condition Status SNOMED Code Problem Bilateral carpal tunnel syndrome G56.03 Active 09962979903261344 Problem Uterine size-date discrepancy in third trimester O26.843 Active 607979062 Problem Heartburn R12 Active 41941945 Problem Encounter for supervision of other normal , third trimester Z34.83 Active 54352460 Problem Anemia affecting , antepartum O99.019 Active 957510449 Problem Other specified related conditions, third trimester O26.893 Active 52115146 ALLERGIES No Information ENCOUNTERS Encounter Location Date Diagnosis [facility] [id number] [id number] Dec, [facility] [employer] [facility] [id number][place] [id number] Dec, Encounter for supervision of other normal , third trimester Z34.83 ; Other specified related conditions, third trimester O26.893 ; Heartburn R12 ; Encounter for screening for Streptococcus B Z36.85 and Bilateral carpal tunnel syndrome G56.03 [facility] [address] [id number][place] [id number] Dec, Heartburn R12 ; Encounter for supervision of other normal , third trimester Z34.83 ; Other specified related conditions, third trimester O26.893 ; Uterine size-date discrepancy in third trimester O26.843 ; Anemia affecting , antepartum O99.019 and Bilateral carpal tunnel syndrome G56.03 [facility] [address] [id number][place] [id number] Nov, Encounter for supervision of other normal , third trimester Z34.83 ; Other specified related conditions, third trimester O26.893 ; Heartburn R12 ; Anemia affecting , antepartum O99.019 and Uterine size-date discrepancy in third trimester O26.843 [facility] [id number], [place] [id number] Nov, [facility] [place] [address] [place] [phone] Nov, Encounter for supervision of other normal , third trimester Z34.83 ; Anemia affecting , antepartum O99.019 ; Heartburn R12 ; Other specified related conditions, third trimester O26.893 and Encounter for immunization Z23 [facility] [address] [id number][place] [phone] Oct, Encounter for supervision of other normal , second trimester Z34.82 [facility] [address]00565100[place] [id number] Oct, Anemia affecting , antepartum O99.019 [facility] [address] [id number] [place] [id number] Oct, Encounter for supervision of other normal , second trimester Z34.82 [facility] [address] [id number], [place] [id number] September, Encounter for supervision of other normal , second trimester Z34.82 [facility] [place] [id number] [id number] September, [facility] [address] [id number], [place] [id number] September, Encounter for supervision of other normal , second trimester Z34.82 ; Other specified bacterial agents as the cause of diseases classified elsewhere B96.89 and Acute vaginitis N76.0 [facility] [place] [id number], [place] [id number] Aug, [facility] [place] [address] [id number], [place] [id number] Jul, Encounter for supervision of other normal , second trimester Z34.82 [facility] [place] [address]00565100[place] [id number] Jul, Encounter for supervision of other normal , first trimester Z34.81 [facility] [address] [id number] [place] [id number] Jun, [facility] [address] [id number], [place] [phone] Jun, [facility] [id number] [place] [id number] May, Encounter for supervision of other normal , first trimester Z34.81 [facility] [id number], [place] [id number] May, test-positive Z32.01 [facility] [place] [facility] [id number] [place] [address]- 2546 Aug, [facility] [place] [facility] [id number] [place] [address] 29499- 2546 Aug, [facility] [id number] [place] [address] [id number] Aug, [facility] [place] [facility] [id number] [place] [address] 27[address]- 7346 Aug, [facility] [id number] [place] [address] [id number] Jul, [facility] [place] [facility] [id number] [place] [address] 08338- 2546 Jul, [facility] [place] [facility] [id number] [place] [address] 20094- 2546 Jun, [facility] [id number], [place] [id number] Jun, [facility] [id number] [place] [address] [id number] Mar, [facility] [place] [facility] [id number] [place] [address] 72106- 2546 Mar, [facility] [id number], [place] [id number] Dec, [facility] [address] [id number], [place] [id number] Apr, [facility] [address] [facility] [id number], [place] [id number] Apr, [facility] [place] [facility] [address] [facility] [id number], [place] [address]- [address] Apr, [facility] [place] [facility] [address] [facility] [id number], [place] [address]- [address] Apr, [facility] [place] [facility] [address] [facility] [id number], [place] [address]- 9878 Apr, [facility] [address] [facility] [id number], [place] [id number] Apr, [facility] [place] [facility] [address] [id number], [place] [address]- [address] Apr, [facility] [place] [facility] [address]00565100[place], [place] [address]998[address]- [address] Mar, [facility] [place] [facility] [address]00565100[place], [place] [address] 98[address] Mar, [facility] [place] [facility] [address]00565100[place], [place] [address]- 6[address] Mar, [facility] [place] [facility] [address]00565100[place], [place] [address] Mar, [facility] [place] [facility] [address] [id number], [place] [address] Mar, [facility] [address] [facility] [id number], [place] [id number] Mar, [facility] [place] [facility] [address] [facility] [id number], [place] [address] Mar, [facility] [address] [facility] [id number], [place] [id number] Feb, [facility] [place] [facility] [address] [id number], [place] [address] Feb, [facility] [place] [facility] [address]00565100[place], [place] [address] Feb, [facility] [address] [id number], [place] [id number] Feb, [address]00565100[place], [place] [id number] Jan, [place] [id number] [id number] Oct, [address] [place] [address] [id number] Jul, [address]00565100[place], [place] [id number] May, [facility] [place] [id number] [place] [address]- [address]46 Apr, [facility] [place] [address]00565100[place], [place] [address]- [address] Jan, IMMUNIZATIONS No Known Immunizations SOCIAL HISTORY Never Assessed REASON FOR VISIT Rx to Pharmacy PLAN OF CARE VITAL SIGNS MEDICATIONS Medication Instructions Dosage Frequency Start Date End Date Duration Status Ferrous Sulfate 325 (65 Fe) MG Orally Once a day 1 tablet 24h Oct, 30 day(s) Active RESULTS No Results PROCEDURES No Known procedures INSTRUCTIONS MEDICATIONS ADMINISTERED No Known Medications MEDICAL (GENERAL) HISTORY Type Description Date Surgical History tonsillectomy and adenoidectomy Surgical History cholecystectomy Hospitalization History ER for vaginal discharge 08/2017
--- OUTSIDE RECORDS SUMMARY | 2018-02-01 20:10 | XMS REPORT ---
Author Author RAVIN WELDON Organization [facility] Address [address] [place] [address] Care Team Providers Care Gas Well Drilling Manager Name Role Phone SHIRAZ RAVIN Unavailable PROBLEMS Type Condition ICD9-CM Code YWG39-LE Code Onset Dates Condition Status SNOMED Code Problem Bilateral carpal tunnel syndrome G56.03 Active 02468181598435727 Problem Uterine size-date discrepancy in third trimester O26.843 Active 372586556 Problem Heartburn R12 Active 90412086 Problem Encounter for supervision of other normal , third trimester Z34.83 Active 73832403 Problem Anemia affecting , antepartum O99.019 Active 001452774 Problem Other specified related conditions, third trimester O26.893 Active 10339073 ALLERGIES No Information ENCOUNTERS Encounter Location Date Diagnosis [id number] [phone] Jan, [facility] [address] [place] [address] [phone] Jan, [facility] [address] [id number], [place] [id number] Jan, [facility] [address] [id number] [id number] Dec, [facility] [address] [id number], [place] [id number] Dec, Encounter for supervision of other normal , third trimester Z34.83 [facility] [id number] [place] [address] [id number] Dec, Encounter for supervision of other normal , third trimester Z34.83 ; Other specified related conditions, third trimester O26.893 ; Heartburn R12 ; Encounter for screening for Streptococcus B Z36.85 and Bilateral carpal tunnel syndrome G56.03 [facility] [id number] [place] [id number] Dec, Heartburn R12 ; Encounter for supervision of other normal , third trimester Z34.83 ; Other specified related conditions, third trimester O26.893 ; Uterine size-date discrepancy in third trimester O26.843 ; Anemia affecting , antepartum O99.019 and Bilateral carpal tunnel syndrome G56.03 [facility] [place] [id number] [place] [id number] Nov, Encounter for supervision of other normal , third trimester Z34.83 ; Other specified related conditions, third trimester O26.893 ; Heartburn R12 ; Anemia affecting , antepartum O99.019 and Uterine size-date discrepancy in third trimester O26.843 [facility] [place] [id number] [place] [address] [id number] Nov, [facility] [address] [place] [address] [id number] Nov, Encounter for supervision of other normal , third trimester Z34.83 ; Anemia affecting , antepartum O99.019 ; Heartburn R12 ; Other specified related conditions, third trimester O26.893 and Encounter for immunization Z23 [facility] [address] [id number], [place] [id number] Oct, Encounter for supervision of other normal , second trimester Z34.82 [facility] [address]00565100[place] [id number] Oct, Anemia affecting , antepartum O99.019 [facility] [place] [id number] [place] [address] [phone] Oct, Encounter for supervision of other normal , second trimester Z34.82 [facility] [address] [id number], [place] [id number] September, Encounter for supervision of other normal , second trimester Z34.82 [facility] [place] [id number] [id number] September, [facility] [address] [id number], [place] [id number] September, Encounter for supervision of other normal , second trimester Z34.82 ; Other specified bacterial agents as the cause of diseases classified elsewhere B96.89 and Acute vaginitis N76.0 [facility] [id number] [place] [phone] Aug, [facility] [id number] [place] [id number] Jul, Encounter for supervision of other normal , second trimester Z34.82 [facility] [id number] [place] [id number] Jul, Encounter for supervision of other normal , first trimester Z34.81 [facility] [id number] [place] [address] [id number] Jun, [facility] [place] [id number] [place] [address] [phone] Jun, [facility] [id number] [place] [address] [phone] May, Encounter for supervision of other normal , first trimester Z34.81 [facility] [place] [id number] [place] [id number] May, test-positive Z32.01 [facility] [id number] [place] [address]5557 2546 Aug, [facility] [id number] [place] [address] 15683 2546 Aug, [facility] [id number] [place] [address] [phone] Aug, [facility] [id number] [place] [address] 14941 2546 Aug, [facility] [place] [id number] [place] [address] [id number] Jul, [facility] [id number] [place] [address] 50403- 2546 Jul, [facility] [id number] [place] [address] 12359- 7186 Jun, [facility] [address] [id number] [place] [id number] Jun, [facility] [address] [id number] [place] [id number] Mar, [facility] [place] [facility] [address] [id number] [address]- 2546 Mar, [facility] [address] [id number] [place] [id number] Dec, [facility] [address] [id number] [place] [id number] Apr, [facility] [address] [id number] [place] [id number] Apr, [facility] [place] [facility] [address] [facility] [id number], [place] [address]- 8866 Apr, [facility] [place] [facility] [address]00565100[place], [place] [address]- 7198 Apr, [facility] [place] [facility] [address] [facility] [id number][place] [address]- 1786 Apr, [facility] [address] [id number] [place] [id number] Apr, [facility] [place] [facility] [address]00565100[place], [place] [address]- [address] Apr, [facility] [place] [facility] [address] [id number] [address]- 6639 Mar, [facility] [place] [facility] [address] [facility] [id number], [place] [address]- 7580 Mar, [facility] [place] [facility] [address] [facility] [id number], [place] [address]- 2985 Mar, [facility] [place] [facility] [address] [facility] [id number], [place] [address]- 4155 Mar, [facility] [place] [facility] [address] [facility] [id number], [place] [address]- 4048 Mar, [facility] [id number] [place] [id number] Mar, [facility] [address]00565100[place], [place] [address]- 2546 Mar, [facility] [id number] [place] [id number] Feb, [facility] [address]00565100[place], [place] [address]- 2546 Feb, [facility] [address] [place] [address] 54200- 2546 Feb, [facility] [id number] [place] [id number] Feb, [facility] [id number] [place] [address] [id number] Jan, [facility] [id number] [place] [address] [phone] Oct, [facility] [id number] [place] [address] [id number] Jul, [facility] [id number] [place] [id number] May, [facility] [address]00565100[place] [address]- 4[address] Apr, [facility] [address]00565100[place], [place] [address]- 1566 Jan, IMMUNIZATIONS No Known Immunizations SOCIAL HISTORY Never Assessed REASON FOR VISIT Waiting for call back PLAN OF CARE VITAL SIGNS MEDICATIONS Unknown Medications RESULTS Name Result Date Reference Range Ultrasound : OB, Limited 2017-11-21 PROCEDURES No Known procedures INSTRUCTIONS MEDICATIONS ADMINISTERED No Known Medications MEDICAL (GENERAL) HISTORY Type Description Date Surgical History tonsillectomy and adenoidectomy Surgical History cholecystectomy Hospitalization History ER for vaginal discharge 08/2017
--- OUTSIDE RECORDS SUMMARY | 2018-02-01 20:10 | XMS REPORT ---
Author Author RAVIN WELDON Organization [facility] Address [address] [place] [address] Care Team Providers Care Customer Specialist Name Role Phone SHIRAZ RAVIN Unavailable PROBLEMS Type Condition ICD9-CM Code SII49-TC Code Onset Dates Condition Status SNOMED Code Problem Bilateral carpal tunnel syndrome G56.03 Active 25860705832394049 Problem Uterine size-date discrepancy in third trimester O26.843 Active 242962343 Problem Heartburn R12 Active 50576900 Problem Encounter for supervision of other normal , third trimester Z34.83 Active 35556157 Problem Anemia affecting , antepartum O99.019 Active 735035149 Problem Other specified related conditions, third trimester O26.893 Active 97327334 ALLERGIES No Known Allergies ENCOUNTERS Encounter Location Date Diagnosis [id number] [id number] Jan, [facility] [address] [place] [address] [id number] Jan, [facility] [address] [id number], [place] [id number] Jan, [facility] [id number] [id number] Dec, [facility] [address] [id number], [place] [id number] Dec, Encounter for supervision of other normal , third trimester Z34.83 [facility] [address] [id number], [place] [id number] Dec, Encounter for supervision of other normal , third trimester Z34.83 ; Other specified related conditions, third trimester O26.893 ; Heartburn R12 ; Encounter for screening for Streptococcus B Z36.85 and Bilateral carpal tunnel syndrome G56.03 [facility] [id number] [place] [id number] Dec, Heartburn R12 ; Encounter for supervision of other normal , third trimester Z34.83 ; Other specified related conditions, third trimester O26.893 ; Uterine size-date discrepancy in third trimester O26.843 ; Anemia affecting , antepartum O99.019 and Bilateral carpal tunnel syndrome G56.03 [facility] [id number] [place] [address] [id number] Nov, Encounter for supervision of other normal , third trimester Z34.83 ; Other specified related conditions, third trimester O26.893 ; Heartburn R12 ; Anemia affecting , antepartum O99.019 and Uterine size-date discrepancy in third trimester O26.843 [facility] [id number] [place] [address] [id number] Nov, [facility] [address] [place] [address] [id number] Nov, Encounter for supervision of other normal , third trimester Z34.83 ; Anemia affecting , antepartum O99.019 ; Heartburn R12 ; Other specified related conditions, third trimester O26.893 and Encounter for immunization Z23 [facility] [id number], [place] [id number] Oct, Encounter for supervision of other normal , second trimester Z34.82 [facility] [address] [id number] Oct, Anemia affecting , antepartum O99.019 [facility] [address] [place] [address] [id number] Oct, Encounter for supervision of other normal , second trimester Z34.82 [facility] [address] [id number], [place] [id number] September, Encounter for supervision of other normal , second trimester Z34.82 [facility] [place] [address] [id number] [id number] September, [facility] [address] [id number], [place] [address] September, Encounter for supervision of other normal , second trimester Z34.82 ; Other specified bacterial agents as the cause of diseases classified elsewhere B96.89 and Acute vaginitis N76.0 [facility] [id number] [place] [id number] Aug, [facility] [id number] [place]DE [place] [id number] Jul, Encounter for supervision of other normal , second trimester Z34.82 [facility] [id number] HYDE [place] [address] Jul, Encounter for supervision of other normal , first trimester Z34.81 [facility] [id number] HYDE [place] [id number] Jun, [facility] [id number] HY[place] [id number] Jun, [facility] [id number] [place] [address] [id number] May, Encounter for supervision of other normal , first trimester Z34.81 [facility] [id number] HYDE [place] [id number] May, test-positive Z32.01 [facility] [id number] [place] [address] 60236 2546 Aug, [facility] [id number] [place] [address] 63158 2546 Aug, [facility] [id number] HYDE [place] [id number] Aug, [facility] [id number] [place] [address]24- 6666 Aug, [facility] [id number] [place] [address] [id number] Jul, [facility] [id number] [place] [address] 95029- 9906 Jul, [facility] [id number] [place] [address] 43350- 4866 Jun, [facility] [address] [id number] [place] [id number] Jun, [facility] [address] [id number] [place] [phone] Mar, [facility] [place] [facility] [address] [id number] [place] [address]- 2546 Mar, [facility] [address] [id number] [place] [phone] Dec, [facility] [address] [id number] [place] [id number] Apr, [facility] [address] [id number] [place] [id number] Apr, [facility] [place] [facility] [address] [facility] [id number] [address]- 9146 Apr, [facility] [place] [facility] [address]00565100[place], [place] [address]- 1447 Apr, [facility] [place] [facility] [address] [facility] [id number], [place] [address]- 9068 Apr, [facility] [address] [id number] [place] [id number] Apr, [facility] [place] [facility] [address]00565100[place], [place] [address]- 9997 Apr, [facility] [place] [facility] [address]00565100[place], [place] [address]- 0247 Mar, [facility] [place] [facility] [address] [id number], [place] [address]- 1821 Mar, [facility] [place] [facility] [address] [facility] [id number], [place] [address]- 2434 Mar, [facility] [place] [facility] [address] [facility] [id number], [place] [address]- 2113 Mar, [facility] [place] [facility] [address] [facility] [id number], [place] [address]- 3529 Mar, [facility] [id number] [place] [phone] Mar, [facility] [id number] [place] [address] 00832- 2546 Mar, [facility] [id number] [place] [address] [id number] Feb, [facility] [id number] [place] [address] 15227- 2546 Feb, [facility] [id number] [place] [address] 08791- 2546 Feb, [facility] [id number] [place] [address] [id number] Feb, [facility] [id number] [place] [address] [id number] Jan, [facility] [id number] [place] [address] [id number] Oct, [facility] [id number] [place] [address] [id number] Jul, [facility] [id number] [place] [address] [id number] May, [facility] [id number] [place] [address] 19960 2546 Apr, [facility] [address] [place] [address] 27637- 2546 Jan, IMMUNIZATIONS Vaccine Route Administration Date Status TDAP (BOOSTRIX) IM Intramuscular November 21, 2017 Administered SOCIAL HISTORY Never Assessed REASON FOR VISIT Followup---caleb, RN PLAN OF CARE Activity Details Follow Up 2 Weeks Reason: VITAL SIGNS Height 67 in 2017-11-21 Weight 166.6 lbs 2017-11-21 Temperature 97.9 degrees Fahrenheit 2017-11-21 Heart Rate 92 bpm 2017-11-21 Respiratory Rate 16 2017-11-21 BMI 26.093 kg/m2 2017-11-21 Blood pressure systolic 122 mmHg 2017-11-21 Blood pressure diastolic 70 mmHg 2017-11-21 MEDICATIONS Medication Instructions Dosage Frequency Start Date End Date Duration Status Multivitamin Plus DHA 27-0.8-250 MG Orally no more than twice a day as directed May, Active Ranitidine HCl 150 MG Orally Once a day 1 tablet at bedtime 24h Nov, 30 day(s) Active Ferrous Sulfate 325 (65 Fe) MG Orally Once a day 1 tablet 24h Oct, 30 day(s) Active RESULTS Name Result Date Reference Range UA OB DIP (IN HOUSE) 2017-11-21 Glucose neg Protein trace PROCEDURES Procedure Date Ordered Result Body Site URINE-NO MICRO November 21, 2017 SINGLE IMMUNIZATION ADMIN November 21, 2017 TDAP (BOOSTRIX) November 21, 2017 INSTRUCTIONS MEDICATIONS ADMINISTERED No Known Medications MEDICAL (GENERAL) HISTORY Type Description Date Surgical History tonsillectomy and adenoidectomy Surgical History cholecystectomy Hospitalization History ER for vaginal discharge 08/2017
--- OUTSIDE RECORDS SUMMARY | 2018-02-01 20:11 | XMS REPORT ---
Author Author RAVIN WELDON [facility] Address [address] [place] [address] Care Team Providers Care Class A Regional Truck Driver Name Role Phone SHIRAZ RAVIN Unavailable PROBLEMS Type Condition ICD9-CM Code YTU81-PA Code Onset Dates Condition Status SNOMED Code Problem Encounter for supervision of other normal , first trimester Z34.81 Active 37627426 Problem Uterine size-date discrepancy in third trimester O26.843 Active 702673457 Problem Anemia affecting , antepartum O99.019 Active 351841188 Problem Encounter for supervision of other normal , third trimester Z34.83 Active 11475294 Problem Encounter for supervision of other normal , second trimester Z34.82 Active 29761610 Problem Other specified related conditions, third trimester O26.893 Active 29145370 Problem Heartburn R12 Active 56024650 ALLERGIES No Information ENCOUNTERS Encounter Location Date Diagnosis [facility] [address]005[address]100[place] [id number] Dec, [facility] [id number], [place] [address] Nov, Encounter for supervision of other normal , third trimester Z34.83 ; Other specified related conditions, third trimester O26.893 ; Heartburn R12 ; Anemia affecting , antepartum O99.019 and Uterine size-date discrepancy in third trimester O26.843 [facility] [address] W [facility] [id number], [place] [id number] Nov, [address] [address] Nov, Encounter for supervision of other normal , third trimester Z34.83 ; Anemia affecting , antepartum O99.019 ; Heartburn R12 ; Other specified related conditions, third trimester O26.893 and Encounter for immunization Z23 [facility] [address] [facility] [facility] [address] [id number] [place] [id number] Oct, Encounter for supervision of other normal , second trimester Z34.82 [facility] [address] [id number] [place] [id number] Oct, Anemia affecting , antepartum O99.019 [facility] [address] [id number] [place] [address] Oct, Encounter for supervision of other normal , second trimester Z34.[address] [facility] [address] [id number] [id number] September, Encounter for supervision of other normal , second trimester Z34.82 [facility] [address] [id number] [place] [address] September, [facility] [address] [facility] [address] [id number][place] [id number] September, Encounter for supervision of other normal , second trimester Z34.82 ; Other specified bacterial agents as the cause of diseases classified elsewhere B96.89 and Acute vaginitis N76.0 [facility] [address] [id number] [place] [id number] Aug, [facility] [address] [id number] [place] [id number] Jul, Encounter for supervision of other normal , second trimester Z34.82 [facility] [address] [id number] [place] [address] Jul, Encounter for supervision of other normal , first trimester Z34.81 [facility] [address] [id number] [place] [id number] Jun, [facility] [address] [id number] [place] [address] Jun, [facility] [address] [id number] [place] [id number] May, Encounter for supervision of other normal , first trimester Z34.81 [facility] [address] [id number] [place] [address]99[address] May, test-positive Z32.01 [facility] [address] [id number] [address]- 0261 Aug, [facility] [address]00565100[place] [address]- 8745 Aug, [facility] [place] [id number], [place] [address] Aug, [facility] [address] [place] [address] 93868- 5864 Aug, [facility] [address] [id number], [place] [id number] Jul, [facility] [address] [place] [address] 14922- 1756 Jul, [facility] [address]65100[place] [address]- 4064 Jun, [facility] [place] [id number] [place] [address] [id number] Jun, [facility] [place] [id number] [place] [address] [id number] Mar, [facility] [address] [address] 2546 Mar, [facility] [place] [id number], [place] [id number] Dec, [facility] [place] [address] [id number], [place] [id number] Apr, [facility] [address] [id number], [place] [id number] Apr, [facility] [place] [facility] [address]00565100[place] [address]- 4851 Apr, [facility] [place] [facility] [address]00565100[place] [address]- 6991 Apr, [facility] [place] [facility] [address] [id number] [address]- 0303 Apr, [facility] [id number], [place] [id number] Apr, [facility] [place] [facility] [address] [facility] [id number] [place] [address]- 6965 Apr, [facility] [place] [facility] [address] [facility] [id number] [place] [address]- 4756 Mar, [facility] [place] [facility] [address] [facility] [id number] [place] [address]- 9297 Mar, [facility] [place] [facility] [address] [facility] [id number] [place] [address]- 7629 Mar, [facility] [place] [facility] [address] [facility] [id number] [place] [address]- 8533 Mar, [facility] [place] [facility] [address] [facility] [id number] [place] [address]- 1211 Mar, [facility] [id number], [place] 334765689 Mar, [facility] [place] [facility] [address] [facility] [id number] [place] [address]- 0312 Mar, [facility] [address] [facility] [id number], [place] [id number] Feb, [facility] [place] [facility] [address] [facility] [id number] [place] [address]- 0386 Feb, [facility] [place] [facility] [address] [facility] [id number] [place] [address]- 2546 Feb, [facility] [address] [id number], [place] [id number] Feb, [facility] [address] [id number], [place] [id number] Jan, [facility] [address] [id number], [place] [id number] Oct, [facility] [address] [id number], [place] [id number] Jul, [facility] [address] [id number], [place] 526944080 May, [facility] [place] [facility] [address] [facility] [id number] [place] [address]- 4666 14 Apr, 2011 [facility] [address] [facility] [id number] [place] [address]- 8166 13 Jan, 2011 IMMUNIZATIONS No Known Immunizations SOCIAL HISTORY Never Assessed REASON FOR VISIT Courtesy visit- Would like FHT checked. Hasn't felt baby move alot today. Robert PARNELL PLAN OF CARE VITAL SIGNS MEDICATIONS Unknown Medications RESULTS No Results PROCEDURES No Known procedures INSTRUCTIONS MEDICATIONS ADMINISTERED No Known Medications MEDICAL (GENERAL) HISTORY Type Description Date Surgical History tonsillectomy and adenoidectomy Surgical History cholecystectomy Hospitalization History ER for vaginal discharge 08/2017
--- OUTSIDE RECORDS SUMMARY | 2018-02-01 20:11 | XMS REPORT ---
Author Author RAVIN WELDON Organization [facility] Address [address] [place] [address] Care Team Providers Care Internal Communications Manager Name Role Phone BUZZMICHELLESOO RAVIN Unavailable PROBLEMS Type Condition ICD9-CM Code WNU02-AS Code Onset Dates Condition Status SNOMED Code Problem Anemia affecting , antepartum O99.019 Active 212625780 Problem Encounter for supervision of other normal , second trimester Z34.82 Active 41830592 Problem Encounter for supervision of other normal , first trimester Z34.81 Active 72610493 ALLERGIES No Information ENCOUNTERS Encounter Location Date Diagnosis [address] [place] [address] [id number] Nov, [facility] [address] [id number] [id number] Oct, Encounter for supervision of other normal , second trimester Z34.82 [address] [place] [address] [phone] Oct, Anemia affecting , antepartum O99.019 [id number] [place] [address] [id number] Oct, Encounter for supervision of other normal , second trimester Z34.82 [facility] [address] [id number], [place] [id number] September, Encounter for supervision of other normal , second trimester Z34.[id number] [place] [address] [id number] September, [facility] [address] [id number], [place] [id number] September, Encounter for supervision of other normal , second trimester Z34.82 ; Other specified bacterial agents as the cause of diseases classified elsewhere B96.89 and Acute vaginitis N76.0 [facility] [id number], [place] [id number] Aug, [facility] [id number] [place] [address] [id number] Jul, Encounter for supervision of other normal , second trimester Z34.82 [facility] [id number], [place] [address]77472278 Jul, Encounter for supervision of other normal , first trimester Z34.81 [facility] [id number], [place] [id number] Jun, [facility] [id number] [place] [address] [id number] Jun, [facility] [id number] [place] [address] [id number] May, Encounter for supervision of other normal , first trimester Z34.81 [facility] [id number], [place] [id number] May, test-positive Z32.01 [facility] [address] [place] [address] 34240- 8556 Aug, [facility] [id number] [place] [address] 23532 2546 Aug, [facility] [id number], [place] 890842662 Aug, [facility] [address] [place] [address] 46488 2546 Aug, [facility] [id number], [place] 987332582 Jul, [facility] [id number] [place] [address] 48789 2546 Jul, [facility] [id number] [place] [address] 39247- 2546 Jun, [facility] [id number], [place] [id number] Jun, [facility] [address] [id number] [place] [id number] Mar, [facility] [place] [facility] [address] [id number], [place] [address]- 2546 Mar, [facility] [address] [id number] [place] [id number] Dec, [facility] [address] [id number] [place] [id number] Apr, [facility] [address] [id number] [place] [id number] Apr, [facility] [place] [facility] [address] [id number] [place] [address]- 7256 Apr, [facility] [place] [facility] [address] [facility] [id number] [place] [address]- 9516 Apr, [facility] [place] [facility] [address] [facility] [id number], [place] [address]- 6676 Apr, [facility] [address] [facility] [id number], [place] [id number] Apr, [facility] [place] [facility] [address] [id number] [place] [address]- 6177 Apr, [facility] [place] [facility] [address] [id number], [place] 206[place]- 3638 Mar, [facility] [place] [facility] [address] [id number], [place] [address]- 3287 Mar, [facility] [place] [facility] [address] [facility] [id number], [place] [address]- 9766 Mar, [facility] [place] [facility] [address] [facility] [id number], [place] [address]- 3550 Mar, [facility] [place] [facility] [address] [facility] [id number], [place] [address]- 7306 Mar, [facility] [address] [id number], [place] [id number] Mar, [facility] [place] [facility] [address] [facility] [id number], [place] [address]- 7986 Mar, [facility] [id number], [place] [id number] Feb, [facility] [id number] [place] [address] 13220- 2546 Feb, [facility] [id number] [place] [address] 50269- 2546 Feb, [facility] [id number] [place] [address] [id number] Feb, [facility] [id number] [place] [address] [id number] Jan, [facility] [id number] [place] [address] [id number] Oct, [facility] [id number] [place] [address] [id number] Jul, [facility] [id number] [place] [address] [phone] May, [facility] [id number] [place] [phone] Apr, [facility] [id number] [place] [phone] Jan, IMMUNIZATIONS No Known Immunizations SOCIAL HISTORY Never Assessed REASON FOR VISIT Triage PLAN OF CARE VITAL SIGNS MEDICATIONS Unknown Medications RESULTS No Results PROCEDURES No Known procedures INSTRUCTIONS MEDICATIONS ADMINISTERED No Known Medications MEDICAL (GENERAL) HISTORY Type Description Date Surgical History tonsillectomy and adenoidectomy Surgical History cholecystectomy Hospitalization History ER for vaginal discharge 08/2017
--- OUTSIDE RECORDS SUMMARY | 2018-02-01 20:11 | XMS REPORT ---
Author Author RAVIN WELDON [facility] Address [address] [place] [address] Care Team Providers Care Cat Scanner Operator Name Role Phone SHIRAZ RAVIN Unavailable PROBLEMS Type Condition ICD9-CM Code [id number] Code Onset Dates Condition Status SNOMED Code Problem Anemia affecting , antepartum O99.019 Active 461395625 Problem Other specified related conditions, third trimester O26.893 Active 00913483 Problem Encounter for supervision of other normal , second trimester Z34.82 Active 56819318 Problem Encounter for supervision of other normal , first trimester Z34.81 Active 53568308 Problem Heartburn R12 Active 26514336 Problem Encounter for supervision of other normal , third trimester Z34.83 Active 01118415 ALLERGIES No Information ENCOUNTERS Encounter Location Date Diagnosis [facility] [id number] [place] [id number] Nov, [facility] [address] [id number] [place] [address] Nov, Encounter for supervision of other normal , third trimester Z34.83 ; Anemia affecting , antepartum O99.019 ; Heartburn R12 ; Other specified related conditions, third trimester O26.893 and Encounter for immunization Z23 [facility] [address] [id number][place] [id number] Oct, Encounter for supervision of other normal , second trimester Z34.82 [facility] [address] [id number] [place]ILL[place] [id number] Oct, Anemia affecting , antepartum O99.019 [facility] [address] [id number] [place] [address] Oct, Encounter for supervision of other normal , second trimester Z34.82 [facility] [address] [id number][place] [id number] September, Encounter for supervision of other normal , second trimester Z34.82 [facility] [address] [facility] [id number] [place] [phone] September, [facility] [address] [facility] [address] [id number], [place] [address] September, Encounter for supervision of other normal , second trimester Z34.82 ; Other specified bacterial agents as the cause of diseases classified elsewhere B96.89 and Acute vaginitis N76.0 [facility] [address] [id number] VILLAGE[place] [phone] Aug, [facility] [address] [id number] [place] [id number] Jul, Encounter for supervision of other normal , second trimester Z34.82 [facility] [id number] [place] [address] Jul, Encounter for supervision of other normal , first trimester Z34.81 [facility] [address] [id number] [place] [address] Jun, [facility] [address] [id number] [place] [phone] Jun, [facility] [address] [id number] [place] [id number] May, Encounter for supervision of other normal , first trimester Z34.81 [facility] [id number] [place] [phone] May, test-positive Z32.01 [facility] [address]00565100[place], [place] [address] Aug, [facility] [id number] [place] [address] Aug, [facility] [id number] [place] [address] Aug, [facility] [id number] [place] [address]- [address]046 Aug, [facility] [address] [id number] [place] [id number] Jul, [facility] [place] [facility] [address] [id number] [place] [address] Jul, [facility] [place] [facility] [address] [facility] [id number] [place] [address]- [address] Jun, [facility] [address] [id number] [place] [id number] Jun, [facility] [address] [id number] [place] [id number] Mar, [facility] [place] [facility] [address] [id number] [place] [address]- [address] Mar, [facility] [address] [id number] [place] [id number] Dec, [facility] [address] [id number] [place] [id number] Apr, [facility] [address] [id number] [place] [phone] Apr, [facility] [place] [facility] [address] [facility] [id number] [place] [address]- 67[address] Apr, [facility] [place] [facility] [address] [id number] [address] Apr, [facility] [place] [facility] [address] [id number], [place] [address]- 1787 Apr, [facility] [address] [facility] [id number] [place] [id number] Apr, [facility] [place] [facility] [address] [facility] [id number] [address]- [address] Apr, [facility] [place] [facility] [address] [facility] [id number] [place] [address]- 0268 Mar, [facility] [place] [facility] [address] [facility] [id number] [place] [address]- 4[address] Mar, [facility] [place] [facility] [address] [facility] [id number] [place] [address]- 7[address] Mar, [facility] [id number], [place] [address] 2546 Mar, [facility] [address]00565100[place], [place] [address] Mar, [facility] [id number] [place] [address] [id number] Mar, [facility] [id number] [place] [address]- 2546 Mar, [facility] [id number] [place] [id number] Feb, [facility] [id number] [place] [address]- 2546 Feb, [facility] [id number] [place] [address]- 2546 Feb, [facility] [id number] [place] [address] [id number] Feb, [facility] [id number] [place] [address] [id number] Jan, [facility] [id number] [place] [address] [id number] Oct, [facility] [id number] [place] [address] [id number] Jul, [facility] [id number] [place] [address] [id number] May, [facility] [address]00565100[place] [address] Apr, [facility] [address]00565100[place], [place] [address] Jan, IMMUNIZATIONS No Known Immunizations SOCIAL HISTORY Never Assessed REASON FOR VISIT Blood pressure check Joshua HARDWICK PLAN OF CARE VITAL SIGNS Height 67 in 2017-07-07 Blood pressure systolic 122 mmHg 2017-07-07 Blood pressure diastolic 68 mmHg 2017-07-07 MEDICATIONS Unknown Medications RESULTS No Results PROCEDURES No Known procedures INSTRUCTIONS MEDICATIONS ADMINISTERED No Known Medications MEDICAL (GENERAL) HISTORY Type Description Date Surgical History tonsillectomy and adenoidectomy Surgical History cholecystectomy Hospitalization History ER for vaginal discharge 08/2017
--- OUTSIDE RECORDS SUMMARY | 2018-02-01 20:11 | XMS REPORT ---
Author Author RAVIN WELDON [facility] Address [address] [place] [address] Care Team Providers Care Straightener And Aligner Name Role Phone SHIRAZ RAVIN Unavailable PROBLEMS Type Condition ICD9-CM Code MKR90-NS Code Onset Dates Condition Status SNOMED Code Problem Encounter for supervision of other normal , first trimester Z34.81 Active 91444805 Problem Uterine size-date discrepancy in third trimester O26.843 Active 616303825 Problem Anemia affecting , antepartum O99.019 Active 543183070 Problem Encounter for supervision of other normal , third trimester Z34.83 Active 39307696 Problem Encounter for supervision of other normal , second trimester Z34.82 Active 72183856 Problem Other specified related conditions, third trimester O26.893 Active 27300177 Problem Heartburn R12 Active 89390880 ALLERGIES No Known Allergies ENCOUNTERS Encounter Location Date Diagnosis [facility] [address] [id number], [place] [id number] Dec, [facility] [id number], [place] [address] Nov, Encounter for supervision of other normal , third trimester Z34.83 ; Other specified related conditions, third trimester O26.893 ; Heartburn R12 ; Anemia affecting , antepartum O99.019 and Uterine size-date discrepancy in third trimester O26.843 [facility] [address] [facility] [id number][place] [address] Nov, [facility] [address]00565100[place], [place] [address] Nov, Encounter for supervision of other normal , third trimester Z34.83 ; Anemia affecting , antepartum O99.019 ; Heartburn R12 ; Other specified related conditions, third trimester O26.893 and Encounter for immunization Z23 [facility] [address] [id number] [place] [address] Oct, Encounter for supervision of other normal , second trimester Z34.82 [facility] [address] [id number] [place] [id number] Oct, Anemia affecting , antepartum O99.019 [facility] [address] [id number] [place] [id number] Oct, Encounter for supervision of other normal , second trimester Z34.82 [facility] [address] [id number] ARMY [facility] [id number] September, Encounter for supervision of other normal , second trimester Z34.82 [facility] [address] [id number] [place] [phone] September, [facility] [address] [id number] ARMY [facility] [id number] September, Encounter for supervision of other normal , second trimester Z34.82 ; Other specified bacterial agents as the cause of diseases classified elsewhere B96.89 and Acute vaginitis N76.0 [facility] [address] [id number] [place] [phone] Aug, [facility] [address] [id number] [place] [phone] Jul, Encounter for supervision of other normal , second trimester Z34.82 [facility] [address] [id number] [place] [id number] Jul, Encounter for supervision of other normal , first trimester Z34.81 [facility] [address] [id number] [place] [phone] Jun, [facility] [address] [id number] [place] [phone] Jun, [facility] [address] [id number] [place] [phone] May, Encounter for supervision of other normal , first trimester Z34.81 [facility] [address] [id number] [place] [phone] 26 Rehan, 2018 test-positive Z32.01 [facility] [address] [id number] [address] Aug, [facility] [address]00565100[place], [place] [address] Aug, [facility] [id number], [place] [phone] Aug, [facility] [address] [place] [address]- 6790 Aug, [facility] [address] [facility] [id number], [place] [phone] Jul, [facility] [address] [place] [address]- 7326 Jul, [facility] [address]00565100[place], [place] [address] Jun, [facility] [id number] [place] [address] [id number] Jun, [facility] [place] [address] [id number], [place] [address] Mar, [facility] [address]00565100[place], [place] [address] 9774 Mar, [facility] [id number], [place] [id number] Dec, [facility] [place] [address] [id number], [place] [phone] Apr, [facility] [id number], [place] [id number] Apr, [facility] [place] [facility] [address]00565100[place], [place] [address] Apr, [facility] [place] [facility] [address]00565100[place], [place] [address]- 6168 Apr, [facility] [place] [facility] [address]00565100[place], [place] [address]- [address] Apr, [facility] [id number], [place] [id number] Apr, [facility] [place] [facility] [address] [facility] [id number] [address]- 44[address] Apr, [facility] [place] [facility] [address] [facility] [id number][place] [address]- 4098 Mar, [facility] [place] [facility] [address] [facility] [id number] [address]- 6542 Mar, [facility] [place] [facility] [address] [facility] [id number] [address]- 59[address] Mar, [facility] [place] [facility] [address] [facility] [id number] [address]- 9172 Mar, [facility] [place] [facility] [address] [facility] [id number][place] [address] Mar, [facility] [id number], [place] [id number] Mar, [facility] [place] [facility] [address] [facility] [id number][place] [address]- 4678 Mar, [facility] [address] [id number], [place] [id number] Feb, [facility] [place] [facility] [address] [facility] [id number], [place] [address]- 0946 Feb, [facility] [place] [facility] [address] [facility] [id number] [address]- 2546 Feb, [facility] [address] [id number], [place] [phone] Feb, [facility] [address] [id number], [place] [address]64001254 Jan, [facility] [address] [id number] [place] [id number] Oct, [facility] [address] [id number], [place] [id number] Jul, [facility] [address] [id number], [place] [id number] May, [facility] [place] [facility] [address] [facility] [id number] [place] [address]- [address] 14 Apr, 2011 [facility] [address] [facility] [id number] [place] [address]- [address] 13 Jan, 2011 IMMUNIZATIONS No Known Immunizations SOCIAL HISTORY Never Assessed REASON FOR VISIT ob follow up---MULU ellis PLAN OF CARE Activity Details Follow Up 4 Weeks Reason: Pending Test PAP REFLEX TO HPV IF ASCUS VITAL SIGNS Height 67 in 2017-08-10 Weight 160.4 lbs 2017-08-10 Temperature 98.3 degrees Fahrenheit 2017-08-10 Heart Rate 97 bpm 2017-08-10 Respiratory Rate 16 2017-08-10 BMI 25.122 kg/m2 2017-08-10 Blood pressure systolic 120 mmHg 2017-08-10 Blood pressure diastolic 72 mmHg 2017-08-10 MEDICATIONS Medication Instructions Dosage Frequency Start Date End Date Duration Status Multivitamin Plus DHA 27-0.8-250 MG Orally no more than twice a day as directed May, Active RESULTS No Results PROCEDURES Procedure Date Ordered Result Body Site SPECIMEN HANDLING August 10, 2017 LAB NOT BILLED BY [facility] August 10, 2017 INSTRUCTIONS MEDICATIONS ADMINISTERED No Known Medications MEDICAL (GENERAL) HISTORY Type Description Date Surgical History tonsillectomy and adenoidectomy Surgical History cholecystectomy Hospitalization History ER for vaginal discharge 08/2017
--- OUTSIDE RECORDS SUMMARY | 2018-02-01 20:11 | XMS REPORT ---
Author Author EAN ZHANG [facility] Address [address] [place] [address] Care Team Providers Care Defense Travel Administrator Name Role Phone EAN ZHANG Unavailable PROBLEMS Type Condition ICD9-CM Code EXV61-FS Code Onset Dates Condition Status SNOMED Code Problem Anemia affecting , antepartum O99.019 Active 214781910 Problem Encounter for supervision of other normal , second trimester Z34.82 Active 03009292 Problem Encounter for supervision of other normal , first trimester Z34.81 Active 93164224 ALLERGIES No Information ENCOUNTERS Encounter Location Date Diagnosis [address] [place] [address] [id number] Nov, [place] [id number] [place] [address] [id number] Oct, Anemia affecting , antepartum O99.019 [id number] [place] [id number] Oct, Encounter for supervision of other normal , second trimester Z34.[address] [facility] [address] [facility] [id number] 1978[address] September, Encounter for supervision of other normal , second trimester Z34.82 [id number] [place] [phone] September, [facility] [address] [facility] [id number][place] [phone] September, Encounter for supervision of other normal , second trimester Z34.82 ; Other specified bacterial agents as the cause of diseases classified elsewhere B96.89 and Acute vaginitis N76.0 [facility] [address]00565100[place] [id number] Aug, [id number] [place] [address] [id number] Jul, Encounter for supervision of other normal , second trimester Z34.82 [facility] [id number] [place] [address] Jul, Encounter for supervision of other normal , first trimester Z34.81 [facility] [address] [id number] [place] [id number] Jun, [facility] [id number] [place] [phone] Jun, [facility] [id number] [place] 1580[address] May, Encounter for supervision of other normal , first trimester Z34.81 [facility] [id number] [place] [address] [phone] May, test-positive Z32.01 [facility] [id number] [place] [address]- 2546 Aug, [facility] [id number] [place] [address]207- 2546 Aug, [facility] [id number] [place] [id number] Aug, [facility] [id number] [place] [address]85- 2546 Aug, [facility] [id number] [place] [id number] Jul, [facility] [id number] [place] [address] 23648- 2546 Jul, [facility] [place] [facility] [id number] [place] [address] 97095- 2546 Jun, [facility] [id number] [place] [id number] Jun, [facility] [id number] [place] [id number] Mar, [facility] [id number] [place] [address]- 2546 Mar, [facility] [address] [id number] [place] 589697417 Dec, [facility] [address] [id number] [place] [id number] Apr, [facility] [address] [id number] [place] [id number] Apr, [facility] [address] [facility] [id number] [address]- 8226 Apr, [facility] [place] [address] [facility] [id number] [address]- 9474 Apr, [facility] [address] [facility] [id number] [place] [address]- 0960 Apr, [facility] [address] [facility] [id number] [place] [id number] Apr, [facility] [place] [address]00565100[place] [address]- 7255 Apr, [facility] [address] [id number] 1566[place]- 0397 Mar, [facility] [place] [facility] [address]00565100[place] [address]- 2933 Mar, [facility] [place] [facility] [address] [id number] [address]- 9075 Mar, [facility] [address]00565100[place] [address]- 1184 Mar, [facility] [place] [facility] [address] [facility] [id number] [place] [address]- 1197 Mar, [facility] [address] [facility] [id number] [place] [id number] Mar, [facility] [address] [facility] [id number] [place] [address]- 4066 Mar, [facility] [address] [facility] [id number] [place] [id number] Feb, [facility] [address] [facility] [id number] [place] [address]- 2546 Feb, [facility] [address] [id number] [address]- 2546 Feb, [facility] [address] [id number] [place] [id number] Feb, [facility] [address] [id number] [place] 7[address]8579[address] Jan, [facility] [id number] [place] [address] [id number] Oct, [facility] [address]00565100[place] [id number] Jul, [address]00565100[place] [phone] May, [facility] [address]00565100[place] [address]- 2546 Apr, [facility] [address]00565100[place] [address]- 2546 Jan, IMMUNIZATIONS No Known Immunizations SOCIAL HISTORY Never Assessed REASON FOR VISIT test (walk-in) [facility] PLAN OF CARE VITAL SIGNS MEDICATIONS Unknown Medications RESULTS Name Result Date Reference Range TEST, URINE (IN HOUSE) 2017-06-09 RESULTS POSITIVE Lot # [id number] Control POSITIVE Exp date 08/12/18 PROCEDURES Procedure Date Ordered Result Body Site URINE TEST Jun 09, 2017 INSTRUCTIONS MEDICATIONS ADMINISTERED No Known Medications MEDICAL (GENERAL) HISTORY Type Description Date Surgical History tonsillectomy and adenoidectomy Surgical History cholecystectomy Hospitalization History ER for vaginal discharge 08/2017
[2018-02-01] MEDS ORDERED: AMPICILLIN FOR IV USE 2,000 MG in NS (IVPB) 50 ML IV SCH (20:12)
[2018-02-01] MEDS ORDERED: LACTATED RINGERS 1,000 ML IV SCH (20:12)
--- OUTSIDE RECORDS SUMMARY | 2018-02-01 20:12 | XMS REPORT | Continuity of Care Document ---
Author Author [facility] Address Unknown Phone Unavailable Allergies Active Description Code Type Severity Reaction Onset Reported/Identified Relationship to Patient Clinical Status Yes No Known Drug Allergies [id number] Drug Allergy Mild N/A 07/29/2009 Medications There is no data. 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, ROUTINE 04/27/2011 TYLER HOLLAND MD V25.49 [...] CURRENT TUBERCULOSIS 05/23/2011 786.50 CHEST PAIN 05/23/2011 TELLEZ DO, RAFIQ K 511.0 PLEURISY WITHOUT EFFUSION OR CURRENT TUBERCULOSIS 05/23/2011 TELLEZ DO, RAFIQ K 786.50 CHEST PAIN 05/23/2011 TELLEZ DO, RAFIQ K 511.0 PLEURISY WITHOUT EFFUSION OR CURRENT TUBERCULOSIS 05/23/2011 TELLEZ DO, RAFIQ K 786.50 CHEST PAIN 05/23/2011 TELLEZ DO, RAFIQ K 511.0 PLEURISY WITHOUT EFFUSION OR CURRENT TUBERCULOSIS 05/23/2011 TELLEZ DO, RAFIQ K 786.50 CHEST PAIN 05/23/2011 VIANCA CONKLIN APRN 511.0 PLEURISY WITHOUT EFFUSION OR CURRENT TUBERCULOSIS 05/23/2011 VIANCA CONKLIN APRN 786.50 CHEST PAIN 03/13/2012 SKYLER HAMPTON, TYLER 706.1 ACNE 03/13/2012 TYLER HOLLAND MD 706.1 ACNE 03/13/2012 706.1 ACNE 03/13/2012 TELLEZ RAFIQ HURD 706.1 ACNE 03/13/2012 TELLEZ DO, RAFIQ K 706.1 ACNE 03/13/2012 TELLEZ DO, RAFIQ K 706.1 ACNE 03/13/2012 VIANCA CONKLIN APRN 706.1 ACNE 04/17/2012 SKYLER HAMPTON, TYLER V25.02 Contraceptives 04/17/2012 TYLER HOLLAND MD V76.2 Cervical Pap Smear 04/17/2012 TYLER HOLLAND MD V25.02 Contraceptives 04/17/2012 TYLER HOLLAND MD V76.2 Cervical Pap Smear 04/17/2012 V25.02 Contraceptives 04/17/2012 V76.2 Cervical Pap Smear 04/17/2012 RAFIQ TELLEZ DO K V25.02 Contraceptives 04/17/2012 TELLEZ , RAFIQ K V76.2 Cervical Pap Smear 04/17/2012 TELLEZ , RAFIQ K V25.02 Contraceptives 04/17/2012 TELLEZ , RAFIQ K V76.2 Cervical Pap Smear 04/17/2012 SIENNA TELLEZ DOA K V25.02 Contraceptives 04/17/2012 TELLEZ , RAFIQ K V76.2 Cervical Pap Smear 04/17/2012 VIANCA CONKLIN APRN V25.02 Contraceptives 04/17/2012 VIANCA CONKLIN APRN V76.2 Cervical Pap Smear 12/18/2012 840.8 SPRAIN OF OTHER SPECIFIED SITES OF SHOULDER AND UPPER ARM 12/18/2012 TELLEZ DO, RAFIQ K 840.8 SPRAIN OF OTHER SPECIFIED SITES OF SHOULDER AND UPPER ARM 12/18/2012 TELLEZ DO, RAFIQ K 840.8 SPRAIN OF OTHER SPECIFIED SITES OF SHOULDER AND UPPER ARM 12/18/2012 TELLEZ DO, RAFIQ K 840.8 SPRAIN OF OTHER SPECIFIED SITES OF SHOULDER AND UPPER ARM 12/18/2012 CONKLINVIANCA JOHNSON APRN R 840.8 SPRAIN OF OTHER SPECIFIED SITES OF SHOULDER AND UPPER ARM 03/19/2013 TELLEZ DO RAFIQ K V25.9 UNSPECIFIED CONTRACEPTIVE MANAGEMENT 03/19/2013 TELLEZ DO, RAFIQ K V25.9 UNSPECIFIED CONTRACEPTIVE MANAGEMENT 03/19/2013 TELLEZ DO, RAFIQ K V25.9 UNSPECIFIED CONTRACEPTIVE MANAGEMENT 03/19/2013 VIANCA CONKLIN APRN V25.9 UNSPECIFIED CONTRACEPTIVE MANAGEMENT 07/15/2013 TELLEZ SIENNA HURDA K 372.30 CONJUNCTIVITIS UNSPECIFIED 07/15/2013 RAFIQ TELLEZ DO K 784.0 HEADACHE 07/15/2013 VIANCA CONKLIN APRN R 372.30 CONJUNCTIVITIS UNSPECIFIED 07/15/2013 CONKLINVIANCA JOHNSON APRN 784.0 HEADACHE 02/21/2017 MICAELA RAMSAY MD Ot R10.33 PERIUMBILICAL PAIN 02/21/2017 MICAELA RAMSAY MD Ot R11.2 NAUSEA WITH VOMITING, UNSPECIFIED 02/21/2017 MICAELA RAMSAY MD Ot Z87.19 PERSONAL HISTORY OF OTHER DISEASES OF 02/21/2017 MICAELA RAMSAY MD Ot Z90.49 ACQUIRED ABSENCE OF OTHER SPECIFIED PART 02/27/2017 MICAELA RAMSAY MD Ot R10.33 PERIUMBILICAL PAIN 02/27/2017 MICAELA RAMSAY MD Ot R11.2 NAUSEA WITH VOMITING, UNSPECIFIED 02/27/2017 MICAELA RAMSAY MD Ot Z87.19 PERSONAL HISTORY OF OTHER DISEASES OF 02/27/2017 MICAELA RAMSAY MD Ot Z90.49 ACQUIRED ABSENCE OF OTHER SPECIFIED PART 06/19/2017 RAVIN WELDON DO Ot Z34.81 ENCOUNTER FOR SUPRVSN OF NORMAL PREGNANC 06/19/2017 BARNIDGE DO, RAVIN E Ot Z3A.01 LESS THAN 8 WEEKS GESTATION OF 07/28/2017 BARNIDGE DORAVIN E Ot Z34.81 ENCOUNTER FOR SUPRVSN OF NORMAL PREGNANC 07/28/2017 BARNIDGE DO, RAVIN E Ot Z3A.01 LESS THAN 8 WEEKS GESTATION OF 09/05/2017 BARNIDGE DOIESHARAVIN E Ot Z34.81 ENCOUNTER FOR SUPRVSN OF NORMAL PREGNANC 09/05/2017 BARNIDGE DO, RAVIN E Ot Z3A.01 LESS THAN 8 WEEKS GESTATION OF 09/05/2017 MICAELA RAMSAY MD T Ot O99.89 OT DISEASES AND CONDITIONS COMPL PREG/C 09/05/2017 MICAELA RAMSAY MD Ot R10.2 PELVIC AND PERINEAL PAIN 09/05/2017 MICAELA RAMSAY MD Ot Z3A.18 18 WEEKS GESTATION OF 09/05/2017 MICAELA RAMSAY MD Ot Z87.19 PERSONAL HISTORY OF OTHER DISEASES OF 09/05/2017 MICAELA RAMSAY MD T Ot Z90.89 ACQUIRED ABSENCE OF OTHER ORGANS 09/11/2017 MICAELA RAMSAY MD Ot O99.89 OT DISEASES AND CONDITIONS COMPL PREG/C 09/11/2017 MICAELA RAMSAY MD Ot R10.2 PELVIC AND PERINEAL PAIN 09/11/2017 MICAELA RAMSAY MD Ot Z3A.18 18 WEEKS GESTATION OF 09/11/2017 MICAELA RAMSAY MD T Ot Z87.19 PERSONAL HISTORY OF OTHER DISEASES OF 09/11/2017 MICAELA RAMSAY MD Ot Z90.89 ACQUIRED ABSENCE OF OTHER ORGANS 09/19/2017 BARNIDGE DORAVIN Ot Z34.91 ENCNTR FOR SUPRVSN OF NORMAL PREG, UNSP, 09/19/2017 BARNIDGE DO, RAVIN E Ot Z3A.01 LESS THAN 8 WEEKS GESTATION OF 09/19/2017 BARNIDGE DORAVIN E Ot Z34.91 ENCNTR FOR SUPRVSN OF NORMAL PREG, UNSP, 09/19/2017 BARNIDGE DO, RAVIN E Ot Z3A.01 LESS THAN 8 WEEKS GESTATION OF 09/20/2017 BARNIDGE DO, RAVIN E Ot Z34.91 ENCNTR FOR SUPRVSN OF NORMAL PREG, UNSP, 09/20/2017 BARNIDGE DO, RAVIN E Ot Z3A.01 LESS THAN 8 WEEKS GESTATION OF 09/21/2017 BARNIDGE DO, RAVIN E Ot Z34.82 ENCOUNTER FOR SUPRVSN OF NORMAL PREGNANC 09/21/2017 BARNIDGE DO, RAVIN E Ot Z3A.20 20 WEEKS GESTATION OF 09/29/2017 BARNIDGE DO, RAVIN E Ot Z34.91 ENCNTR FOR SUPRVSN OF NORMAL PREG, UNSP, 09/29/2017 BARNIDGE DO, RAVIN E Ot Z3A.01 LESS THAN 8 WEEKS GESTATION OF 10/06/2017 BARNIDGE DO, RAVIN E Ot Z34.82 ENCOUNTER FOR SUPRVSN OF NORMAL PREGNANC 10/06/2017 BARNIDGE DO, RAVIN E Ot Z3A.20 20 WEEKS GESTATION OF 11/21/2017 BARNIDGE DO, RAVIN E Ot Z34.83 ENCOUNTER FOR SUPRVSN OF NORMAL PREGNANC 11/21/2017 BARNIDGE DO, RAVIN E Ot Z3A.30 30 WEEKS GESTATION OF 12/08/2017 BARNIDGE DO, RAVIN E Ot Z34.83 ENCOUNTER FOR SUPRVSN OF NORMAL PREGNANC 12/08/2017 BARNIDGE DO, RAVIN E Ot Z3A.30 30 WEEKS GESTATION OF Procedures Code Description [place] [address] PAP SMEAR 04/17/2012 Q0091 PAP SMEAR OBTAIN SMEAR 04/17/2012 58333 URINE TEST (IN- HOUSE) 04/17/2012 11411 THERAPUTIC INJ SQ/IM 03/19/2013 J1050 DEPO PROVERA 03/19/2013 71715 URINE TEST (IN- HOUSE) 03/19/2013 86621 TEST, URINE (IN- HOUSE) 06/18/2013 J1050 DEPO PROVERA 06/18/2013 10418 THERAPUTIC INJ SQ/IM 06/18/2013 31609 THERAPUTIC INJ SQ/IM 09/06/2013 J1050 DEPO PROVERA 09/06/2013 85664 TEST, URINE (IN- HOUSE) 09/06/2013 Results Test Result Range Complete urinalysis with reflex to culture - 02/21/17 10:09 Urine color determination YELLOW NRG Urine clarity determination CLEAR NRG Urine pH measurement by test strip 7 5-9 Specific gravity of urine by test strip 1.010 1.016- 1.022 Urine protein assay by test strip, semi-quantitative NEGATIVE NEGATIVE Urine glucose detection by automated test strip NEGATIVE NEGATIVE Erythrocytes detection in urine sediment by light microscopy NEGATIVE NEGATIVE Urine ketones detection by automated test strip NEGATIVE NEGATIVE Urine nitrite detection by test strip NEGATIVE NEGATIVE Urine total bilirubin detection by test strip NEGATIVE NEGATIVE Urine urobilinogen measurement by automated test strip (mass/volume) NORMAL NORMAL Urine leukocyte esterase detection by dipstick NEGATIVE NEGATIVE Automated urine sediment erythrocyte count by microscopy (number/high power field) NONE NRG Automated urine sediment leukocyte count by microscopy (number/high power field ) NONE NRG Bacteria detection in urine sediment by light microscopy NEGATIVE NRG Squamous epithelial cells detection in urine sediment by light microscopy 0-2 NRG Crystals detection in urine sediment by light microscopy NONE NRG Casts detection in urine sediment by light microscopy NONE NRG Mucus detection in urine sediment by light microscopy NEGATIVE NRG Complete urinalysis with reflex to culture NO NRG Complete blood count (CBC) with automated white blood cell (WBC) differential - 02/21/17 11:45 Blood leukocytes automated count (number/volume) 7.7 10*3/uL 4.3-11.0 Blood erythrocytes automated count (number/volume) 4.54 10*6/uL 4.35-5.85 Venous blood hemoglobin measurement (mass/volume) 14.6 g/dL 11.5-16.0 Blood hematocrit (volume fraction) 42 % 35-52 Automated erythrocyte mean corpuscular volume 91 [foz_us] 80-99 Automated erythrocyte mean corpuscular hemoglobin (mass per erythrocyte) 32 pg 25-34 Automated erythrocyte mean corpuscular hemoglobin concentration measurement ( mass/volume) 35 g/dL 32-36 Automated erythrocyte distribution width ratio 12.4 % 10.0-14.5 Automated blood platelet count (count/volume) 284 10*3/uL 130-400 Automated blood platelet mean volume measurement 9.5 [foz_us] 7.4-10.4 Automated blood neutrophils/100 leukocytes 65 % 42-75 Automated blood lymphocytes/100 leukocytes 24 % 12-44 Blood monocytes/100 leukocytes 10 % 0-12 Automated blood eosinophils/100 leukocytes 1 % 0-10 Automated blood basophils/100 leukocytes 0 % 0-10 Blood neutrophils automated count (number/volume) 5.0 10*3 1.8-7.8 Blood lymphocytes automated count (number/volume) 1.8 10*3 1.0-4.0 Blood monocytes automated count (number/volume) 0.7 10*3 0.0-1.0 Automated eosinophil count 0.1 10*3/uL 0.0-0.3 Automated blood basophil count (count/volume) 0.0 10*3/uL 0.0-0.1 Comprehensive metabolic panel - 02/21/17 11:45 Serum or plasma sodium measurement (moles/volume) 142 mmol/L 135-145 Serum or plasma potassium measurement (moles/volume) 3.9 mmol/L 3.6-5.0 Serum or plasma chloride measurement (moles/volume) 103 mmol/L 98-107 Carbon dioxide 28 mmol/L 21-32 Serum or plasma anion gap determination (moles/volume) 11 mmol/L 5-14 Serum or plasma urea nitrogen measurement (mass/volume) 12 mg/dL 7-18 Serum or plasma creatinine measurement (mass/volume) 0.88 mg/dL 0.60-1.30 Serum or plasma urea nitrogen/creatinine mass ratio 14 NRG Serum or plasma creatinine measurement with calculation of estimated glomerular filtration rate > NRG Serum or plasma glucose measurement (mass/volume) 97 mg/dL 70-105 Serum or plasma calcium measurement (mass/volume) 9.9 mg/dL 8.5-10.1 Serum or plasma total bilirubin measurement (mass/volume) 0.5 mg/dL 0.1-1.0 Serum or plasma alkaline phosphatase measurement (enzymatic activity/volume) 81 U/L 40-136 Serum or plasma aspartate aminotransferase measurement (enzymatic activity/ volume) 20 U/L 5-34 Serum or plasma alanine aminotransferase measurement (enzymatic activity/volume ) 23 U/L 0-55 Serum or plasma protein measurement (mass/volume) 7.8 g/dL 6.4-8.2 Serum or plasma albumin measurement (mass/volume) 4.5 g/dL 3.2-4.5 Lipase - 02/21/17 11:45 Lipase 10 U/L 8-78 Serum or plasma choriogonadotropin ( test) detection - 02/21/17 11:45 Serum or plasma choriogonadotropin ( test) detection NEGATIVE NEGATIVE CULTURE, URINE - 06/13/17 16:27 CULTURE, URINE, ROUTINE SEE NOTE NRG QNATAL - 07/13/17 09:58 NUMBER OF FETUSES? 1 NRG ADVANCED MATERNAL AGE? NO NRG ABNORMAL HUNTER? NO NRG ABNORMAL US? NO NRG PERSONAL/FAM HISTORY? NO NRG INTERPRETATION SEE NOTE NRG TRISOMY 21 (T21) Negative NRG TRISOMY 18 (T18) Negative NRG TRISOMY 13 (T13) Negative NRG Y CHROMOSOME Detected NRG Y CHR. INTERPRETATION SEE NOTE NRG SEX CHROMOSOME No aneuploidy NRG SEX CHROMOSOME INTERP SEE NOTE NRG MICRODELETION Not detected NRG MICRODELETION INTERP SEE NOTE NRG GESTATIONAL AGE(IN WEEKS) 10 NRG GESTATIONAL AGE (IN DAYS) 5 NRG FRACTION 7.74% NRG LABORATORY COMMENTS SEE NOTE NRG LIMITATIONS SEE NOTE NRG SPECIFICATIONS SEE NOTE NRG METHODOLOGY SEE NOTE NRG CULTURE, GENITAL - 08/10/17 11:13 CULTURE, GENITAL SEE NOTE NRG SUREPATH PAP RFX HPV mRNA E6/E7 - 08/10/17 11:13 CLINICAL INFORMATION: NRG LMP: 04/10/17 NRG PREV. PAP: WNL NRG PREV. BX: NONE NRG SOURCE: [employer] NRG STATEMENT OF ADEQUACY: NRG INTERPRETATION/RESULT: NRG HEAD OF TALENT MANAGEMENT: NRG COMMENT NRG Complete urinalysis with reflex to culture - 09/05/17 12:04 Urine color determination YELLOW NRG Urine clarity determination CLEAR NRG Urine pH measurement by test strip 6.5 5-9 Specific gravity of urine by test strip 1.005 1.016- 1.022 Urine protein assay by test strip, semi-quantitative NEGATIVE NEGATIVE Urine glucose detection by automated test strip NEGATIVE NEGATIVE Erythrocytes detection in urine sediment by light microscopy NEGATIVE NEGATIVE Urine ketones detection by automated test strip NEGATIVE NEGATIVE Urine nitrite detection by test strip NEGATIVE NEGATIVE Urine total bilirubin detection by test strip NEGATIVE NEGATIVE Urine urobilinogen measurement by automated test strip (mass/volume) NORMAL NORMAL Urine leukocyte esterase detection by dipstick NEGATIVE NEGATIVE Automated urine sediment erythrocyte count by microscopy (number/high power field) NONE NRG Automated urine sediment leukocyte count by microscopy (number/high power field ) NONE NRG Bacteria detection in urine sediment by light microscopy NEGATIVE NRG Squamous epithelial cells detection in urine sediment by light microscopy 0-2 NRG Crystals detection in urine sediment by light microscopy NONE NRG Casts detection in urine sediment by light microscopy NONE NRG Mucus detection in urine sediment by light microscopy NEGATIVE NRG Complete urinalysis with reflex to culture NO NRG Chlamydia DNA amp probe, urine - 09/05/17 12:04 Chlamydia DNA amp probe, urine Not Detected Not Detected Complete blood count (CBC) with automated white blood cell (WBC) differential - 09/05/17 13:25 Blood leukocytes automated count (number/volume) 8.4 10*3/uL 4.3-11.0 Blood erythrocytes automated count (number/volume) 3.63 10*6/uL 4.35-5.85 Venous blood hemoglobin measurement (mass/volume) 11.7 g/dL 11.5-16.0 Blood hematocrit (volume fraction) 32 % 35-52 Automated erythrocyte mean corpuscular volume 89 [foz_us] 80-99 Automated erythrocyte mean corpuscular hemoglobin (mass per erythrocyte) 32 pg 25-34 Automated erythrocyte mean corpuscular hemoglobin concentration measurement ( mass/volume) 36 g/dL 32-36 Automated erythrocyte distribution width ratio 13.0 % 10.0-14.5 Automated blood platelet count (count/volume) 216 10*3/uL 130-400 Automated blood platelet mean volume measurement 10.0 [foz_us] 7.4-10.4 Automated blood neutrophils/100 leukocytes 73 % 42-75 Automated blood lymphocytes/100 leukocytes 19 % 12-44 Blood monocytes/100 leukocytes 8 % 0-12 Automated blood eosinophils/100 leukocytes 1 % 0-10 Automated blood basophils/100 leukocytes 0 % 0-10 Blood neutrophils automated count (number/volume) 6.1 10*3 1.8-7.8 Blood lymphocytes automated count (number/volume) 1.6 10*3 1.0-4.0 Blood monocytes automated count (number/volume) 0.6 10*3 0.0-1.0 Automated eosinophil count 0.1 10*3/uL 0.0-0.3 Automated blood basophil count (count/volume) 0.0 10*3/uL 0.0-0.1 Whole blood basic metabolic panel - 09/05/17 13:25 Serum or plasma sodium measurement (moles/volume) 136 mmol/L 135-145 Serum or plasma potassium measurement (moles/volume) 3.6 mmol/L 3.6-5.0 Serum or plasma chloride measurement (moles/volume) 106 mmol/L 98-107 Carbon dioxide 25 mmol/L 21-32 Serum or plasma anion gap determination (moles/volume) 5 mmol/L 5-14 Serum or plasma urea nitrogen measurement (mass/volume) 8 mg/dL 7-18 Serum or plasma creatinine measurement (mass/volume) 0.61 mg/dL 0.60-1.30 Serum or plasma urea nitrogen/creatinine mass ratio 13 NRG Serum or plasma creatinine measurement with calculation of estimated glomerular filtration rate > NRG Serum or plasma glucose measurement (mass/volume) 76 mg/dL 70-105 Serum or plasma calcium measurement (mass/volume) 9.2 mg/dL 8.5-10.1 Bacteria identification in genital specimen by aerobe culture - 09/05/17 14:45 FREE TEXT EXTERNAL PLUS NORMAL JOHANA NRG QUANTITY OF GROWTH Scant Growth NRG Bacteria identification in genital specimen by aerobe culture [id number] NRG Microscopic examination by JEAN CARLOS preparation - 09/05/17 14:45 Microscopic examination by JEAN CARLOS preparation TNP NRG Microscopic examination by wet preparation - 09/05/17 14:45 WET PREP RESULTS NO CLUE CELLS OBSERVED NRG Neisseria gonorrhoeae DNA detection by probe and signal amplification method - 09/05/17 14:45 Gonorrhea amp DNA-urine Not Detected Not Detected GLUCOSE KASEY 1 HOUR - 11/02/17 10:05 GLUCOSE, POSTPRANDIAL/ 1 HOUR 66 mg/dL See Note: CBC - 11/02/17 10:05 WHITE BLOOD CELL COUNT 8.5 Thousand/uL 3.8-10.8 RED BLOOD CELL COUNT 3.63 Million/uL 3.80-5.10 HEMOGLOBIN 11.5 g/dL 11.7-15.5 HEMATOCRIT 34.0 % 35.0-45.0 MCV 93.7 fL 80.0-100.0 MCH 31.7 pg 27.0-33.0 MCHC 33.8 g/dL 32.0-36.0 RDW 12.4 % 11.0-15.0 PLATELET COUNT 196 Thousand/uL 140-400 MPV 12.1 fL 7.5-12.5 ABSOLUTE NEUTROPHILS 6239 cells/uL 9847-3608 ABSOLUTE LYMPHOCYTES 1471 cells/uL 850-3900 ABSOLUTE MONOCYTES 663 cells/uL 200-950 ABSOLUTE EOSINOPHILS 111 cells/uL 15-500 ABSOLUTE BASOPHILS 17 cells/uL 0-200 NEUTROPHILS 73.4 % NRG LYMPHOCYTES 17.3 % NRG MONOCYTES 7.8 % NRG EOSINOPHILS 1.3 % NRG BASOPHILS 0.2 % NRG CULTURE, GROUP B STREP (VAGINAL) - 01/10/18 11:21 STREPTOCOCCUS, GROUP B CULTURE SEE NOTE NRG Encounters ACCT No. Visit Date/Time Discharge Status Pt. Type Provider Facility Loc./Unit Complaint [id number] 09/06/2013 16:28:00 09/06/2013 23:59:59 CLS Outpatient VIANCA CONKLIN APRN [id number] 07/15/2013 17:02:00 07/15/2013 23:59:59 CLS Outpatient RAFIQ TELLEZ DO [id number] 06/18/2013 08:55:00 06/18/2013 23:59:59 CLS Outpatient RAFIQ TELLEZ DO [id number] 03/19/2013 08:14:00 03/19/2013 23:59:59 CLS Outpatient RAFIQ TELLEZ DO [id number] 04/17/2012 13:17:00 04/17/2012 23:59:59 [place] [id number] 03/13/2012 08:48:00 03/13/2012 23:59:59 CLS Outpatient TYLRE HOLLAND MD [id number] 12/18/2012 14:25:00 Document Registration [id number] 11/20/2017 09:28:00 11/20/2017 23:59:59 CLS Outpatient RAVIN WELDON DO [facility] RAD SUPERVISION OF THE OTHER NORMAL [id number] 09/20/2017 10:51:00 09/20/2017 23:59:59 CLS Outpatient RAVIN WELDON DO [facility] RAD Z34.82 SECOND TRIMESTER [id number] 09/05/2017 11:43:00 09/05/2017 16:41:00 DIS Emergency DEVENDRA HAMPTON, MICAELA Phillip [facility] ER 18 1/2 WEEKS PG, CRAMPING [id number] 06/16/2017 13:24:00 06/16/2017 23:59:59 CLS Outpatient RAVIN WELDON DO [facility] RAD SUPERVISION OF [id number] 02/21/2017 09:20:00 02/21/2017 12:49:00 DIS Emergency DEVENDRA HAMPTON, MICAELA Phillip [facility] ER VOMINTING ALL NIGHT/ ABD PAIN [id number] 01/18/2018 13:00:00 01/18/2018 23:59:59 [id number] 01/10/2018 11:40:00 Document Registration [id number] 11/02/2017 08:40:00 Document Registration [id number] 08/10/2017 11:13:00 Document Registration [id number] 08/10/2017 09:20:00 Document Registration [id number] 07/13/2017 08:40:00 Document Registration [id number] 06/13/2017 14:00:00 Document Registration
[2018-02-01] MEDS ORDERED: CATHETER FLUSH 10 ML SYR IV PRN (20:15)
[2018-02-01] MEDS ORDERED: TERBUTALINE INJ 1 MG/ML (BRETHINE) AMP SC PRN (20:15)
[2018-02-01] MEDS ORDERED: MINERAL OIL CONCENTRATE 99.9% 15 ML UDC TOP PRN (20:15)
[2018-02-01] MEDS ORDERED: ZOLPIDEM 5 MG (AMBIEN) TAB PO PRN (20:15)
[2018-02-01] MEDS ORDERED: BUTORPHANOL INJ 2 MG/ML (STADOL) VIAL IV PRN (20:15)
[2018-02-01] MEDS ORDERED: MISOPROSTOL 100 MCG (CYTOTEC) TAB ONE (20:38)
[2018-02-01] MEDS: D5 LR IV SOLUTION 1,000 ML IV SCH (20:49)
[2018-02-01 20:57] LABS: BASOPHILS % (AUTO) 0 % (0-10); EOSINOPHILS # (AUTO) 0.1 10^3/uL (0.0-0.3); EOSINOPHILS % (AUTO) 1 % (0-10); HEMATOCRIT 29 % (35-52); HEMOGLOBIN 10.7 G/DL (11.5-16.0); LYMPHOCYTES # (AUTO) 2.3 X 10^3 (1.0-4.0); LYMPHOCYTES % (AUTO) 21 % (12-44); MEAN CORPUSCULAR HEMOGLOBIN 32 PG (25-34); MEAN CORPUSCULAR HGB CONC 37 G/DL (32-36); MEAN CORPUSCULAR VOLUME 88 FL (80-99); MEAN PLATELET VOLUME 11.6 FL (7.4-10.4); MONOCYTES # (AUTO) 0.9 X 10^3 (0.0-1.0); MONOCYTES % (AUTO) 8 % (0-12); NEUTROPHILS # (AUTO) 7.7 X 10^3 (1.8-7.8); NEUTROPHILS % (AUTO) 70 % (42-75); PLATELET COUNT 191 10^3/uL (130-400); RED BLOOD COUNT 3.32 10^6/uL (4.35-5.85); WHITE BLOOD COUNT 10.9 10^3/uL (4.3-11.0)
[2018-02-01 21:00] VITALS: BP 133/82
[2018-02-01] MEDS ORDERED: PREN-142 PO (21:05)
[2018-02-01] MEDS: MISOPROSTOL 100 MCG (CYTOTEC) TAB PV SCH (21:14)
[2018-02-01 22:30] VITALS: BP 124/81
--- NOTE | 2018-02-01 22:35 | History & Physical-OB ---
OB - Chief Complaint & HPI Date/Time Date of Admission: Date of Admission: Feb 01, 2018 at 20:00 Date seen by a Provider: Feb 02, 2018 Time Seen by a Provider: 04:30 Chief Complaint/History OB-Reason for Admission/Chief: Induction of Labor (elective induction of labor at 39 wks gestation) Hx : 2 Hx Para: 1 Hx Last Menstrual Period: 04/10/2017 Expected Date of Delivery: Feb 03, 2018 Gestational Age in Weeks: 39 Gestational Age in Days: 6 Indication for induction: maternal discomfort Admission Nurse Assessment Rev: Yes History of Labs O Positive, antibody screen negative TSH WNL CBC WNL - Hgb 13.6/Hct 40.4 CMP WNL UDS Negative Trich Negative GC/Chlamydia Negative HIV Negative Rubella Immune QNatal - male fetus, negative for aneuploidy Hep B Negative Hep C Negative RPR Nonreactive Varicella Immune One hour GTT - 66 CBC WNL - Hgb 11.5/Hct 34.0, Platelets 196 GBS POSITIVE Other Dating established via US at 6w6d --> 02/03/2018 Allergies and Home Medications Allergies Coded Allergies: No Known Drug Allergies (Unverified , 07/29/09) Home Medications Vit No.124/Iron/FA 1 Each Tablet, 1 EACH PO DAILY, (Reported) Patient Home Medication List Home Medication List Reviewed: Yes OB - History Hx of Present Care: Yes Ultrasounds: Normal mid trimester US Obstetrical Complications: None Medical Complications: None Information Induced Hypertension: No Maternal Gestational Diabetes: No Hemorrhage: No Obstetrical History Hx : 2 Hx Para: 1 Hx # Term Pregnancies: 1 Hx # Pregnancies: 0 Number of Living Children: 1 Hx Termination: No Hx Total # of Abortions (Spona: 0 Hx Multiple Gestation: No Hx Ectopic : No Hx Stillbirth: No Hx Complication: No Hx Induced Hypertens: No Hx Maternal Gestational Diabet: No Hx Hemorrhage: No Delivery History Hx Dystocia: No Hx Forceps Assisted Delivery: No Hx Vacuum Extraction Assisted: No Hx Placenta Abnormality: No Hx Distress: No Hx Large For Gestational Age I: No Hx Small for Gestational Age I: No Hx Section: No Hx Vaginal Delivery Post C-Sec: No Hx Blood Disorders: No Adverse Rxn to Tranfusion: No Patient Past Medical History x1 Carpal Tunnel Syndrome - Bilateral Social History/Family History HIV/AIDS: No Recent Infectious Disease Expo: No Sexually Transmitted Disease: No Alcohol Use: Denies Use Recreational Drug Use: No Smoking Cessation: Never smoker 2nd Hand Smoke Exposure: No Immunizations Tetanus Booster (TDap): Less than 5yrs Rubella: immune RPR/VDRL: Negative GBS Status: Positive HBsAG: Negative OB - Admission Exam Physical Exam HEENT: NCAT Heart: Rhythm Normal Lungs: Clear Abdomen: Gravid Extremities: Normal Reflexes: Normal Cervical Dilatation: 4cm Effacement: Other (80) Station: -1 Membranes: Ruptured Amniotic Fluid: Clear Heart Rate: 140's Accelerations: Accelerations Present Decelerations: No Decelerations Penitentiary Variability: Average (6-25) Contractions on Admission: >10 Minutes Apart Intensity: Moderate Gardner Scoring Tool (Modified) Dilation (cm): 3-4cm (2) Effacement (%): 80-100% (3) Descent/Station: -1,0 (2) Cervix Consistency: Soft (2) Cervix Position: Anterior (2) Add 1 point for: Each previous vaginal delivery (1) Gardner Score: 12 Labs Laboratory Tests Test 02/01/18 20:30 Range/Units White Blood Count 10.9 4.3-11.0 10^3/uL Red Blood Count 3.32 L 4.35-5.85 10^6/uL Hemoglobin 10.7 L 11.5-16.0 G/DL Hematocrit 29 L 35-52 % Mean Corpuscular Volume 88 80-99 FL Mean Corpuscular Hemoglobin 32 25-34 PG Mean Corpuscular Hemoglobin Concent 37 H 32-36 G/DL Red Cell Distribution Width 13.0 10.0-14.5 % Platelet Count 191 130-400 10^3/uL Mean Platelet Volume 11.6 H 7.4-10.4 FL Neutrophils (%) (Auto) 70 42-75 % Lymphocytes (%) (Auto) 21 12-44 % Monocytes (%) (Auto) 8 0-12 % Eosinophils (%) (Auto) 1 0-10 % Basophils (%) (Auto) 0 0-10 % Neutrophils # (Auto) 7.7 1.8-7.8 X 10^3 Lymphocytes # (Auto) 2.3 1.0-4.0 X 10^3 Monocytes # (Auto) 0.9 0.0-1.0 X 10^3 Eosinophils # (Auto) 0.1 0.0-0.3 10^3/uL Basophils # (Auto) 0.0 0.0-0.1 10^3/uL OB - Assessment/Plan/Diagnosis Assessment Assessment: group B positive strep, induction of labor Admission Dx Induction of Labor Term IUP 39 weeks Gestation GBS Positive Admission Status: Inpatient Order (span 2 midnights) Reason for Inpatient Admission: delivery, care Plan Plan: Induction Other Plan 25 mcg misoprostol per vagina last night; pt with sufficient cervical change and ctx that no additional doses needed AROM this AM with clear fluid Will augment with pitocin if needed Copy Copies To 1: RAVIN WELDON MARGARET E DO Feb 01, 2018 22:35
[2018-02-01] MEDS ORDERED: ONDANSETRON 4 MG/2 ML (SDV) Z0FRAN IVP PRN (22:45)
[2018-02-01 23:30] VITALS: BP 125/81
[2018-02-02] VITALS (61 sets, daily range): BP systolic 108–176; BP diastolic 65–94
[2018-02-02] MEDS: MISOPROSTOL 100 MCG (CYTOTEC) TAB PV SCH (01:00)
[2018-02-02] MEDS: AMPICILLIN FOR IV USE 1,000 MG in NS (IVPB) 50 ML IV SCH ×4 (01:12→13:26)
[2018-02-02] MEDS: D5 LR IV SOLUTION 1,000 ML IV SCH ×2 (04:55→13:25)
[2018-02-02] MEDS ORDERED: BUTORPHANOL INJ 2 MG/ML (STADOL) VIAL IV ONE (05:00)
[2018-02-02] MEDS ORDERED: SUFENTA 0.6MCG/ML BUPIVA 0.125 100 ML ONE (06:07)
[2018-02-02] MEDS ORDERED: LACTATED RINGERS 1,000 ML IV SCH (07:01)
[2018-02-02] MEDS ORDERED: NALOXONE 0.4 MG/ML 1 ML (NARCAN) VIAL IV PRN ×2 (07:15)
[2018-02-02] MEDS ORDERED: EPIDURAL (SUFENTA 0.6MCG/ML BUPIVA 0.125%) 100 ML BAG EPI SCH (07:15)
[2018-02-02] MEDS ORDERED: METOCLOPRAMIDE INJ 10 MG/2 ML (REGLAN) IV PRN (07:15)
[2018-02-02] MEDS ORDERED: ONDANSETRON 4 MG/2 ML (SDV) Z0FRAN IV PRN (07:15)
[2018-02-02] MEDS ORDERED: diphenhydrAMINE 50 MG/ML INJ (BENADRYL) IV PRN (07:15)
[2018-02-02] MEDS ORDERED: FLU QUADRIvalent (5+ YOA) 2018-2019 (AFLURIA) 0.5 ML IM ONE (07:15)
[2018-02-02] MEDS ORDERED: LIDOCAINE/EPI 2% 1:200,00 (XYLOCAINE) 10 ML VIAL ONE (09:10)
[2018-02-02] MEDS ORDERED: OXYTOCIN/NORMAL SALINE 500 ML IV ONE (09:10)
--- NOTE | 2018-02-02 11:55 | Labor Progress Note ---
Labor Progress Note Labor Progress Note Date Seen by Provider: Feb 02, 2018 Time Seen by Provider: 11:40 Subjective: Pt denies complaints. Mild pressure with contractions, denies urge to push. Objective: Cervical exam: 10 cm Presentation: Vertex; OP, able to rotate to LOT with exam heart tones: 155 beats per minute, moderate variability, Category II Tocometer: 3-5 ctx/10 minutes Assessment/Plan: Belgica Lemons is a 32 /Para 2/1, Gestational Age 39 6/7 here for elective induction of labor. Progressed to complete with one dose vaginal cytotec last night and AROM this AM. CEFM/TOCO Anesthesia: Epidural Anticipate vaginal delivery, will allow to labor down until urge to push as long as FHR tolerates. Vitals - Labs Vital Signs - I&O Vital Signs Date Time Temp Pulse Resp B/P (MAP) Pulse Ox O2 Delivery O2 Flow Rate FiO2 02/02/18 11:05 86 18 135/81 (99) 99 Non Rebreather 10.00 02/02/18 10:55 84 18 136/73 (94) 99 Non Rebreather 10.00 02/02/18 10:35 83 18 144/85 (104) 100 Non Rebreather 10.00 02/02/18 10:20 81 18 139/82 (101) 100 Non Rebreather 10.00 02/02/18 10:05 67 18 140/89 (106) 100 Non Rebreather 10.00 02/02/18 09:50 75 18 137/87 (104) 100 Non Rebreather 10.00 02/02/18 09:35 63 18 116/69 (85) 100 Non Rebreather 10.00 02/02/18 09:20 71 18 128/72 (90) 100 Non Rebreather 10.00 02/02/18 09:05 65 18 123/71 (88) 100 Non Rebreather 10.00 02/02/18 08:50 72 18 129/75 (93) 100 Non Rebreather 10.00 02/02/18 08:35 60 18 115/65 (82) 100 Non Rebreather 10.00 02/02/18 08:20 60 18 116/70 (85) 100 Non Rebreather 10.00 02/02/18 08:05 60 18 122/69 (86) 100 Non Rebreather 10.00 02/02/18 07:50 63 18 114/66 (82) 100 Non Rebreather 10.00 02/02/18 07:35 73 18 109/71 (84) 100 Non Rebreather 10.00 02/02/18 07:30 72 18 108/72 (84) 98 Non Rebreather 10.00 02/02/18 07:25 98.3 73 18 117/71 (86) 99 Room Air 02/02/18 07:20 71 18 116/66 (83) 98 Room Air 02/02/18 07:15 73 18 129/76 (93) 98 Room Air 02/02/18 07:10 75 18 120/69 (86) 99 Room Air 02/02/18 07:07 75 18 129/79 (96) 99 Room Air 02/02/18 07:03 69 129/78 (95) 96 Room Air 02/02/18 07:00 Room Air 02/02/18 06:58 100 138/77 (97) 98 Room Air 02/02/18 06:55 83 142/81 (101) 98 Room Air 02/02/18 06:53 83 137/75 (95) 98 Room Air 02/02/18 06:50 87 165/91 (115) 100 Room Air 02/02/18 06:47 88 144/94 (111) 100 Room Air 02/02/18 06:45 Room Air 02/02/18 06:44 102 148/75 (99) 99 Room Air 02/02/18 06:39 91 156/92 (113) 97 Room Air 02/02/18 06:30 66 133/79 (97) 98 Room Air 02/02/18 05:30 69 124/76 (92) 02/02/18 04:30 98.4 68 117/73 (88) 02/02/18 03:30 68 113/68 (83) 02/02/18 02:30 97.7 68 18 121/76 (91) 02/02/18 01:30 75 122/75 (91) 02/02/18 00:30 71 128/72 (90) 02/01/18 23:30 80 125/81 (96) 02/01/18 22:30 79 124/81 (95) 02/01/18 21:00 98.4 73 18 133/82 (99) I & O 02/02/18 07:00 Intake Total 3160 ml Balance 3160 ml Labs Laboratory Tests 02/01/18 20:30: White Blood Count 10.9, Red Blood Count 3.32L, Hemoglobin 10.7L, Hematocrit 29L , Mean Corpuscular Volume 88, Mean Corpuscular Hemoglobin 32, Mean Corpuscular Hemoglobin Concent 37H, Red Cell Distribution Width 13.0, Platelet Count 191, Mean Platelet Volume 11.6H, Neutrophils (%) (Auto) 70, Lymphocytes (%) (Auto) 21 , Monocytes (%) (Auto) 8, Eosinophils (%) (Auto) 1, Basophils (%) (Auto) 0, Neutrophils # (Auto) 7.7, Lymphocytes # (Auto) 2.3, Monocytes # (Auto) 0.9, Eosinophils # (Auto) 0.1, Basophils # (Auto) 0.0 RAVIN WELDON DO Feb 02, 2018 11:55
[2018-02-02] MEDS ORDERED: OXYTOCIN/NORMAL SALINE 500 ML IV SCH ×3 (12:36→15:49)
[2018-02-02] MEDS ORDERED: LIDOCAINE/EPI 2% 1:200,00 (XYLOCAINE) 10 ML VIAL INJ PRN (12:45)
[2018-02-02] MEDS ORDERED: MINERAL OIL CONCENTRATE 99.9% 15 ML UDC PO PRN (12:45)
[2018-02-02] MEDS ORDERED: fentaNYL INJECTION 100 MCG/2 ML AMP IVP PRN (15:15)
--- NOTE | 2018-02-02 15:36 | Operative Report ---
Operative Report Date of Procedure/Surgery Feb 02, 2018 Surgeon (s) KATERINA HART MD Manager Port (s): Dr. Manriquez Post-Operative Diagnosis Retained placenta/partial placenta accreta Procedure Performed Manual extraction of retained placenta and emergency curettage Description of Procedure Anesthesia Type: Conscious Sedation Estimated blood loss (mL): 250cc Specimen(s) collected/removed Placenta and uterine curettings Packing: None required Description of the Procedure I was called by labor and delivery at the request of Dr. Manriquez for a patient who is status post a term vaginal delivery. The placenta was partially expelled but still partially attached inside the uterus. Dr. Manriquez she had explored the uterus and found a portion of placenta densely attached. I was consult for management of the retained placenta. Patient was found in the delivery bed and room 320. The umbilical cord was prolapsed from the vagina. There appeared to be placental tissue in the vagina. Patient was given 25 mg of fentanyl for pain and sedation. Manual exploration of the placenta demonstrated that the placenta was probably 70 rate percent released 20 to 30 percent retained anteriorly and high in the uterine cavity. Exam was consistent with placental accreta. There had not been significant bleeding to this point.. The placenta was manually and then the uterine cavity was curettaged with a Dominik's curet with removal of several fragments of obvious placental tissue. Good uterine cry was achieved with the curette. Reexploration of the uterine cavity revealed no remaining palpable placental tissue. Bleeding was normal lochia at this point. The patient tolerated procedure well. Patient was left in the care of Dr. Manriquez. Findings of the Procedure Partial placenta accreta/retained placenta Allergies and Home Medications Allergies Coded Allergies: No Known Drug Allergies (Unverified , 07/29/09) Home Medications Vit No.124/Iron/FA 1 Each Tablet, 1 EACH PO DAILY, (Reported) Patient Home Medication List Home Medication List Reviewed: KATERINA Vivar MD Feb 02, 2018 3:36 pm
[2018-02-02] MEDS ORDERED: TETANUS,DIPTH,PERTUSS P/F (BOOSTRIX) 0.5 ML VIAL IM ONE (16:00)
[2018-02-02] MEDS ORDERED: PIPERACILLIN/TAZO 4.5 GM/NS 100 ML IV NR ×2 (16:00)
[2018-02-02] MEDS ORDERED: oxyCODONE/APAP 5/325MG (PERCOCET 5) TABLET PO PRN (16:00)
[2018-02-02] MEDS ORDERED: BENZOCAINE/MENTHOL (DERMOPLAST) 56 ML CAN TP PRN (16:00)
[2018-02-02] MEDS ORDERED: MEASLES,MUMPS,RUBELLA 1 EA INJ SQ ONE (16:00)
[2018-02-02] MEDS ORDERED: DIBUCAINE (NUPERCAINAL) 1% OINT 30 GM TOP PRN (16:00)
[2018-02-02] MEDS: IBUPROFEN 600 MG (MOTRIN) TAB PO SCH ×2 (16:11→22:08)
--- NOTE | 2018-02-02 16:35 | OB Labor & Delivery Record ---
Vag Delivery Note Vag Delivery Note Date of Delivery: 02/02/18 Preoperative Diagnosis: Belgica Lemons is a 32 /Para 2 / 1,Gestational Age 39 6/7 weeks with complicated by GBS positive status. Postoperative Diagnosis: Same Surgeon: RAVIN WELDON Anesthesia: Epidural Delivery Type: Spontaneous Vaginal Delivery Findings: Viable male infant, apgars 8 and 9, weight 7 lb 7 oz (3365 grams) Lacerations: bilateral labial lacerations, left vaginal side wall laceration No nuchal cord, body cord or shoulder dystocia Retained placenta with partial placenta accreta Estimated Blood Loss: 250 ml Complications: Retained placenta, Placenta Accreta, D&C per Dr. Jessica Condition: Stable Description of Procedure: The patient is a who presented last night for elective induction of labor at 39 5/7 wks gestation. She was admitted and informed consent was obtained. Her labor course was unremarkable. She was treated with ampicillin per protocol for GBS positive status. She progressed to complete dilatation and was allowed to labor down. When she felt pressure, she was set up for delivery and started to push. The infant's head was delivered atraumatically in the OP position. The shoulders and remainder of the 's body were then delivered without difficulty. Upon delivery, the was placed on the maternal abdomen and bulb suction was used on mouth and nares. The cord was allowed to pulsate for more than 60 seconds, then doubly clamped and cut by the father of the baby and the was handed off to the pediatric staff. Cord blood was obtained for typing. Deirdre maneuver performed without successful delivery of placenta. Patient had minimal vaginal bleeding. Attempted manual extraction of the placenta, and approximately 25% of the placenta was felt to be firmly adhered to the fundus. Unable to separate, and Dr. Jessica was called for retained placenta and suspected accreta. He promptly arrived and was also unable to remove the full placenta manually, and a weighted speculum and curette was used to remove the remaining placenta. Her fundus was firm, and she was found to have minimal bleeding. IV oxytocin was given. The placenta was inspected and sent to pathology. It was then noted that the patient had bilateral labial lacerations and a left vaginal laceration. Local anesthetic was used and the left side was repaired in the usual fashion with 3-0 Vicryl; the labial laceration on the right was found to be hemostatic. Given that patient had manual exploration of uterus and curettage, IV Zosyn x24 hours will be given. Following the repair, sponge, instrument and needle counts were correct. Mom and baby were both in stable condition in the labor suite. Vitals - Labs Vital Signs - I&O Vital Signs Date Time Temp Pulse Resp B/P (MAP) Pulse Ox O2 Delivery O2 Flow Rate FiO2 02/02/18 12:20 76 18 131/73 (92) 100 Non Rebreather 10.00 02/02/18 12:05 83 18 136/71 (92) 99 Non Rebreather 10.00 02/02/18 11:50 79 18 136/76 (96) 98 Non Rebreather 10.00 02/02/18 11:35 88 18 138/81 (100) 99 Non Rebreather 10.00 02/02/18 11:20 98.4 77 18 134/69 (90) 100 Non Rebreather 10.00 02/02/18 11:05 86 18 135/81 (99) 99 Non Rebreather 10.00 02/02/18 10:55 84 18 136/73 (94) 99 Non Rebreather 10.00 02/02/18 10:35 83 18 144/85 (104) 100 Non Rebreather 10.00 02/02/18 10:20 81 18 139/82 (101) 100 Non Rebreather 10.00 02/02/18 10:05 67 18 140/89 (106) 100 Non Rebreather 10.00 02/02/18 09:50 75 18 137/87 (104) 100 Non Rebreather 10.00 02/02/18 09:35 63 18 116/69 (85) 100 Non Rebreather 10.00 02/02/18 09:20 71 18 128/72 (90) 100 Non Rebreather 10.00 02/02/18 09:05 65 18 123/71 (88) 100 Non Rebreather 10.00 02/02/18 08:50 72 18 129/75 (93) 100 Non Rebreather 10.00 02/02/18 08:35 60 18 115/65 (82) 100 Non Rebreather 10.00 02/02/18 08:20 60 18 116/70 (85) 100 Non Rebreather 10.00 02/02/18 08:05 60 18 122/69 (86) 100 Non Rebreather 10.00 02/02/18 07:50 63 18 114/66 (82) 100 Non Rebreather 10.00 02/02/18 07:35 73 18 109/71 (84) 100 Non Rebreather 10.00 02/02/18 07:30 72 18 108/72 (84) 98 Non Rebreather 10.00 02/02/18 07:25 98.3 73 18 117/71 (86) 99 Room Air 02/02/18 07:20 71 18 116/66 (83) 98 Room Air 02/02/18 07:15 73 18 129/76 (93) 98 Room Air 02/02/18 07:10 75 18 120/69 (86) 99 Room Air 02/02/18 07:07 75 18 129/79 (96) 99 Room Air 02/02/18 07:03 69 129/78 (95) 96 Room Air 02/02/18 07:00 Room Air 02/02/18 06:58 100 138/77 (97) 98 Room Air 02/02/18 06:55 83 142/81 (101) 98 Room Air 02/02/18 06:53 83 137/75 (95) 98 Room Air 02/02/18 06:50 87 165/91 (115) 100 Room Air 02/02/18 06:47 88 144/94 (111) 100 Room Air 02/02/18 06:45 Room Air 02/02/18 06:44 102 148/75 (99) 99 Room Air 02/02/18 06:39 91 156/92 (113) 97 Room Air 02/02/18 06:30 66 133/79 (97) 98 Room Air 02/02/18 05:30 69 124/76 (92) 02/02/18 04:30 98.4 68 117/73 (88) 02/02/18 03:30 68 113/68 (83) 02/02/18 02:30 97.7 68 18 121/76 (91) 02/02/18 01:30 75 122/75 (91) 02/02/18 00:30 71 128/72 (90) 02/01/18 23:30 80 125/81 (96) 02/01/18 22:30 79 124/81 (95) 9/20/18 21:00 98.4 73 18 133/82 (99) I & O 02/02/18 07:00 Intake Total 3160 ml Balance 3160 ml Labs Laboratory Tests 02/01/18 20:30: White Blood Count 10.9, Red Blood Count 3.32L, Hemoglobin 10.7L, Hematocrit 29L , Mean Corpuscular Volume 88, Mean Corpuscular Hemoglobin 32, Mean Corpuscular Hemoglobin Concent 37H, Red Cell Distribution Width 13.0, Platelet Count 191, Mean Platelet Volume 11.6H, Neutrophils (%) (Auto) 70, Lymphocytes (%) (Auto) 21 , Monocytes (%) (Auto) 8, Eosinophils (%) (Auto) 1, Basophils (%) (Auto) 0, Neutrophils # (Auto) 7.7, Lymphocytes # (Auto) 2.3, Monocytes # (Auto) 0.9, Eosinophils # (Auto) 0.1, Basophils # (Auto) 0.0 RAVIN WELDON DO Feb 02, 2018 16:35
--- NOTE | 2018-02-02 17:35 | OB Labor & Delivery Record ---
L&D History Date of Service Date of Service: Feb 02, 2018 History Expected Date of Delivery: Feb 03, 2018 Gestational Age in Weeks: 39 Hx : 2 Hx Para: 1 Complications Events: Routine care Operative Indications (Cesarea: N/A-Vaginal Delivery Intrapartal Events: None Other Complications Retained placenta, placenta accreta L&D Stage1 Stage One Onset of Labor - Date: Feb 01, 2018 Onset of Labor - Time: 21:15 Duration - Stage I: 13 hours Monitors and Tracing Monitor Mode: External Heart Rate: 170 Monitor Decelerations: Variable Station: +1 Molecular Biology Director Variability: Average (6-10) Presentation: Vertex Vital Signs VS - Last 72 Hours, by Label 02/01/18 02/01/18 02/01/18 02/02/18 21:00 22:30 23:30 00:30 Temp 98.4 Pulse 73 79 80 71 Resp 18 B/P (MAP) 133/82 (99) 124/81 (95) 125/81 (96) 128/72 (90) 02/02/18 02/02/18 02/02/18 02/02/18 01:30 02:30 03:30 04:30 Temp 97.7 98.4 Pulse 75 68 68 68 Resp 18 B/P (MAP) 122/75 (91) 121/76 (91) 113/68 (83) 117/73 (88) 02/02/18 02/02/18 02/02/18 02/02/18 05:30 06:30 06:39 06:44 Pulse 69 66 91 102 B/P (MAP) 124/76 (92) 133/79 (97) 156/92 (113) 148/75 (99) Pulse Ox 98 97 99 O2 Delivery Room Air Room Air Room Air 02/02/18 02/02/18 02/02/18 02/02/18 06:45 06:47 06:50 06:53 Pulse 88 87 83 B/P (MAP) 144/94 (111) 165/91 (115) 137/75 (95) Pulse Ox 100 100 98 O2 Delivery Room Air Room Air Room Air Room Air 02/02/18 02/02/18 02/02/18 02/02/18 06:55 06:58 07:00 07:03 Pulse 83 100 69 B/P (MAP) 142/81 (101) 138/77 (97) 129/78 (95) Pulse Ox 98 98 96 O2 Delivery Room Air Room Air Room Air Room Air 02/02/18 02/02/18 02/02/18 02/02/18 07:07 07:10 07:15 07:20 Pulse 75 75 73 71 Resp 18 18 18 18 B/P (MAP) 129/79 (96) 120/69 (86) 129/76 (93) 116/66 (83) Pulse Ox 99 99 98 98 O2 Delivery Room Air Room Air Room Air Room Air 02/02/18 02/02/18 02/02/18 02/02/18 07:25 07:30 07:35 07:50 Temp 98.3 Pulse 73 72 73 63 Resp 18 18 18 18 B/P (MAP) 117/71 (86) 108/72 (84) 109/71 (84) 114/66 (82) Pulse Ox 99 98 100 100 O2 Delivery Room Air Non Rebreather Non Rebreather Non Rebreather O2 Flow Rate 10.00 10.00 10.00 02/02/18 02/02/18 02/02/18 02/02/18 08:05 08:20 08:35 08:50 Pulse 60 60 60 72 Resp 18 18 18 18 B/P (MAP) 122/69 (86) 116/70 (85) 115/65 (82) 129/75 (93) Pulse Ox 100 100 100 100 O2 Delivery Non Rebreather Non Rebreather Non Rebreather Non Rebreather O2 Flow Rate 10.00 10.00 10.00 10.00 02/02/18 02/02/18 02/02/18 02/02/18 09:05 09:20 09:35 09:50 Pulse 65 71 63 75 Resp 18 18 18 18 B/P (MAP) 123/71 (88) 128/72 (90) 116/69 (85) 137/87 (104) Pulse Ox 100 100 100 100 O2 Delivery Non Rebreather Non Rebreather Non Rebreather Non Rebreather O2 Flow Rate 10.00 10.00 10.00 10.00 02/02/18 02/02/18 02/02/18 02/02/18 10:05 10:20 10:35 10:55 Pulse 67 81 83 84 Resp 18 18 18 18 B/P (MAP) 140/89 (106) 139/82 (101) 144/85 (104) 136/73 (94) Pulse Ox 100 100 100 99 O2 Delivery Non Rebreather Non Rebreather Non Rebreather Non Rebreather O2 Flow Rate 10.00 10.00 10.00 10.00 02/02/18 02/02/18 02/02/18 02/02/18 11:05 11:20 11:35 11:50 Temp 98.4 Pulse 86 77 88 79 Resp 18 18 18 18 B/P (MAP) 135/81 (99) 134/69 (90) 138/81 (100) 136/76 (96) Pulse Ox 99 100 99 98 O2 Delivery Non Rebreather Non Rebreather Non Rebreather Non Rebreather O2 Flow Rate 10.00 10.00 10.00 10.00 02/02/18 02/02/18 12:05 12:20 Pulse 83 76 Resp 18 18 B/P (MAP) 136/71 (92) 131/73 (92) Pulse Ox 99 100 O2 Delivery Non Rebreather Non Rebreather O2 Flow Rate 10.00 10.00 Rupture of Membranes Spontaneous Ruture of Membrane: No Amniotic Membrane Rupture Time: 0437 Amniotic Membrane Fluid Desc.: Clear Vaginal Bleeding Description: Normal Show Induction/Anesthesia Epidural Cath Placement - Time: 0650 L&D Stage2 Stage Two Stage II Date: Feb 02, 2018 Stage II Time: 10:09 Stage II Duration: 4 hours 34 minutes Monitors and Tracing Monitor Mode: External Heart Rate: 170 Group Home Variability: Moderate (11-25) Position: Left Occiput Posterior Presentation: Vertex Cord Descript/Complications Cord Vessel Description: 3 Vessels Complications Retained placenta, placenta accreta Delivery Type Infant Delivery Method: Spontaneous Vaginal Anterior Shoulder: Right Episiotomy/Perineal Laceration Laceraction(s)/Extensions: Yes Episiotomy Description: Vaginal Extension/lac (right labial, left labial, left vaginal) Sutures Used: Vicryl Condition of Infant Delivery Delivery Date & Time: 02/02/18 1443 1 minute Comment: 8 5 minute Comment: 9 Condition of Infant Condition of : Living Exam: No Observed Abnormalities Resuscitation Resuscitation: N/A - Spontaneous Resp L&D Stage3 Stage Three Stage III Date: Feb 02, 2018 Stage III Time: 15:19 Stage III Duration: 34 minutes Pictocin Pitocin Administration Comment: bolus rate Placenta Delivery Placenta Delivery: Manual (manual extraction plus curettage per Dr. Jessica) Delivery Summary Summary Total Labor Time 18 hours, 8 minutes Estimated blood loss (mL): 250 Attending at delivery: Dr. Weldon Condition of Delivery Examined: Cervix Examined, Uterus Explored Post Hemorrhage: No Intervention Required manual extraction of placenta and curettage per Dr. Jessica Condition of Mother stable Condition of Infant (s) stable RAVIN WELDON DO Feb 02, 2018 17:35
[2018-02-02] MEDS: WITCH HAZEL(TUCKS) 40 EA JAR TOP PRN (18:00)
[2018-02-03 00:15] VITALS: BP 125/80
[2018-02-03] MEDS: PIPERACILLIN SODIUM/TAZOBACTAM 4.5 GM in NS (IVPB) 100 ML IV SCH ×3 (00:20→16:31)
[2018-02-03 04:48] VITALS: BP 132/90
[2018-02-03] MEDS: IBUPROFEN 600 MG (MOTRIN) TAB PO SCH ×4 (04:48→22:05)
[2018-02-03 06:12] LABS: BASOPHILS % (AUTO) 0 % (0-10); EOSINOPHILS # (AUTO) 0.1 10^3/uL (0.0-0.3); EOSINOPHILS % (AUTO) 1 % (0-10); HEMATOCRIT 27 % (35-52); HEMOGLOBIN 9.7 G/DL (11.5-16.0); LYMPHOCYTES # (AUTO) 1.4 X 10^3 (1.0-4.0); LYMPHOCYTES % (AUTO) 13 % (12-44); MEAN CORPUSCULAR HEMOGLOBIN 32 PG (25-34); MEAN CORPUSCULAR HGB CONC 36 G/DL (32-36); MEAN CORPUSCULAR VOLUME 90 FL (80-99); MEAN PLATELET VOLUME 11.4 FL (7.4-10.4); MONOCYTES % (AUTO) 8 % (0-12); NEUTROPHILS # (AUTO) 8.8 X 10^3 (1.8-7.8); NEUTROPHILS % (AUTO) 78 % (42-75); PLATELET COUNT 166 10^3/uL (130-400); RED BLOOD COUNT 3.04 10^6/uL (4.35-5.85); RED CELL DISTRIBUTION WIDTH 13.2 % (10.0-14.5); WHITE BLOOD COUNT 11.3 10^3/uL (4.3-11.0)
[2018-02-03] MEDS: DOCUSATE SODIUM 100 MG (COLACE) CAP PO SCH ×3 (07:40→22:05)
[2018-02-03] MEDS: CATHETER FLUSH 10 ML SYR IV SCH ×2 (08:00→16:15)
[2018-02-03 08:19] VITALS: BP 127/90
--- NOTE | 2018-02-03 08:31 | Progress Note (SOAP) ---
Subjective Subjective/Events-last exam Patient is without complaints this am. No abnormal vaginal bleeding. She is without pain. Review of Systems Date Seen by Provider: Feb 03, 2018 Time Seen by Provider: 07:50 Objective Exam Last Set of Vital Signs Vital Signs Date Time Temp Pulse Resp B/P (MAP) Pulse Ox O2 Delivery O2 Flow Rate FiO2 02/03/18 08:19 98.4 78 16 127/90 (102) 98 Room Air 02/02/18 14:35 10.00 Capillary Refill : I&O Intake and Output 02/03/18 00:00 Intake Total 3830 ml Balance 3830 ml Intake IV Total 3830 ml General: Alert, No Acute Distress Abdomen: Soft (with uterus firm) Results/Procedures Lab Laboratory Tests 02/03/18 06:05: White Blood Count 11.3H, Red Blood Count 3.04L, Hemoglobin 9.7L, Hematocrit 27L , Mean Corpuscular Volume 90, Mean Corpuscular Hemoglobin 32, Mean Corpuscular Hemoglobin Concent 36, Red Cell Distribution Width 13.2, Platelet Count 166, Mean Platelet Volume 11.4H, Neutrophils (%) (Auto) 78H, Lymphocytes (%) (Auto) 13, Monocytes (%) (Auto) 8, Eosinophils (%) (Auto) 1, Basophils (%) (Auto) 0, Neutrophils # (Auto) 8.8H, Lymphocytes # (Auto) 1.4, Monocytes # (Auto) 1.0, Eosinophils # (Auto) 0.1, Basophils # (Auto) 0.0 Assessment/Plan Assessment/Plan Assessment & Plan 1. S/P day 1 2. Retained placenta/acreta --treated -no abnormal bleeding -receiving IV zosyn Clinical Quality Measures DVT/VTE Risk/Contraindication: Risk Factor Score Per Nursin RFS Level Per Nursing on Admit: 1=Low/No VTE PPX RAHEEM WEIR MD Feb 03, 2018 08:31
[2018-02-03] MEDS: PRENATAL VITAMIN 1 EA TAB PO SCH (10:39)
[2018-02-03 15:14] VITALS: BP 122/77
[2018-02-03 22:05] VITALS: BP 131/83
[2018-02-04 03:57] VITALS: BP 132/83
[2018-02-04] MEDS: IBUPROFEN 600 MG (MOTRIN) TAB PO SCH ×2 (03:57→09:34)
--- NOTE | 2018-02-04 07:21 | Discharge Summary ---
Diagnosis/Chief Complaint Date of Admission Feb 01, 2018 at 20:00 Date of Discharge February 04, 2018 Admission Diagnosis Admission Diagnosis 1. IUP at 39 weeks Discharge Diagnosis 1. IUP at 39 6/7 weeks. 2. Retained placenta partial accreta Chief Complaint/HPI Chief Complaint/HPI 32-year-old G2 now T2 female who initially was admitted for induction during the evening of February 01, 2018. She was noted to be on day of induction at 39 6/7 weeks. Patient had a uneventful course and was followed by [facility]. Discharge Summary-OBS Procedures 1. Epidural per anesthesia 2. 3. Repair of perineal laceration 4. Manual extraction of retained placenta and emergency uterine curettage ( Dr. Jessica) Discharge Physical Examination Allergies: Coded Allergies: No Known Drug Allergies (Unverified , 07/29/09) Vitals & I&Os Intake and Output 02/04/18 00:00 Intake Total 100 ml Balance 100 ml Vital Sign - Last 12Hours Date Time Temp Pulse Resp B/P (MAP) Pulse Ox O2 Delivery O2 Flow Rate FiO2 02/04/18 03:57 98.6 78 18 132/83 (99) 98 Room Air 02/02/18 14:35 10.00 General Appearance: No Acute Distress Cardiovascular: Regular Rate Abdominal: Soft (with uterus firm) Hospital Course During the course of labor patient received epidural and tolerated well. She also received 6 doses of ampicillin during the course of labor due to maternal GBS positive. She ultimately went on to deliver vaginally with perineal laceration. She had retained placenta and partial accreta. Dr. Jessica was also involved with her care with removal of the partial accreta and placenta with ultimate uterine curettage. Her hemoglobin on admission February 01 was noted to be 10.7. Her hemoglobin on day after delivery was 9.7. Patient had an uneventful course. She did receive Zosyn every 8 hours on February 03, 2018. She was noted to be afebrile during the course of her stay. In the morning of February 04, 2018 patient had no complaints. She was without any shortness of breath or leg pain. She was felt ready for dismissal during the afternoon of 2017. She will follow-up with Dr. Manriquez in 6 weeks. Discharge Instructions to patient/family Please see electronic discharge instructions given to patient. Discharge Medications Reviewed and agree with Discharge Medication list on patient's Discharge Instruction sheet Clinical Quality Measures DVT/VTE Risk/Contraindication: Risk Factor Score Per Nursin RFS Level Per Nursing on Admit: 1=Low/No VTE PPX RAHEEM WEIR MD Feb 04, 2018 07:21
--- NOTE | 2018-02-04 07:53 | Discharge Inst-Women's Service ---
Discharge Inst-Women's Serv Depart Medication/Instructions New, Converted or Re-Newed RX: Other (May use ibuprofen 200 mg (OTC) 2 or 3 tablets every 8 hours if needed for cramps) Consults/Follow Up Additional Follow Up: Yes (Dr Manriquez in 6 weeks) Activity Driving Instructions: You May Drive Nothing Inside Vagina: No [place] (for 6 weeks) Diet Discharge Diet: Regular Diet Return to The Hospital For: As below Symptoms to Report to : Bleeding Excessive, Pain Increased, Fever Over 101 Degrees F, Vaginal Discharge Foul For Any Problems or Questions: Contact Your Physician RAHEEM WEIR MD Feb 04, 2018 07:53
[2018-02-04 09:29] VITALS: BP 137/77
[2018-02-04] MEDS: PRENATAL VITAMIN 1 EA TAB PO SCH (09:34)
[2018-02-04] MEDS: DOCUSATE SODIUM 100 MG (COLACE) CAP PO SCH (09:34)
[2018-02-04] MEDS: WITCH HAZEL(TUCKS) 40 EA JAR TOP PRN (14:35)
== END 2018-02-04 14:55 | disposition home or self-care (01) | DRG 767 ==
LOC: LDRP 20:00
PROVIDERS: ADMIT Family Medicine; ATTEND Family Medicine
PROC: 10D17ZZ Extraction of Products of Conception, Retained, Via Natural or Artificial Opening (ICD-10-PCS; principal; 2018-02-02)
PROC: 10E0XZZ Delivery of Products of Conception, External Approach (ICD-10-PCS; 2018-02-02)
PROC: 0HQ9XZZ Repair Perineum Skin, External Approach (ICD-10-PCS; 2018-02-02)
PROC: 3E0P7GC Introduction of Other Therapeutic Substance into Female Reproductive, Via Natural or Artificial Opening (ICD-10-PCS; 2018-02-02)
DX: O99.824 Streptococcus B carrier state complicating childbirth (principal); O73.1 Retained portions of placenta and membranes, without hemorrhage; O64.0XX0 Obstructed labor due to incomplete rotation of fetal head, not applicable or unspecified; O70.0 First degree perineal laceration during delivery; Z3A.39 39 weeks gestation of pregnancy; Z37.0 Single live birth
CPT/HCPCS: 36415; 85025; 86850; 86900; 86901